=== PATIENT | female | born 1950 | race Caucasian/White ===

== ENCOUNTER → 2016-07-16 | Outpatient (CLI) | payer MEDICARE ==
[~2016-07-16] MED LIST: /LABE20TA; /WARF4TA OR; ASPI81TA83 OR; AVAP150T; AVAP150T OR; CARV25TA PO; COLA100C2; COUMADIN; CRES5TAB OR; K-TA10TA OR; LABE100T2; LASI20TA OR; PAIN325T; THERGRAN OR; XANA0.5T
--- NOTE | 2016-07-16 12:04 | REPMRS ---
Patient History The patient states she had a clinical breast exam in 2015. Patient is postmenopausal and has history of breast cancer at age 60. Family history of unknown cancer in father at age 62 and breast cancer in sister at age 63. Digital Mammo Screening Bilat: July 16, 2016 - Exam #: [id number] Bilateral CC and MLO view(s) were taken. Technologist: Shantell Carbajal, Technologist Prior study comparison: July 14, 2015, bilateral digital mammo screening bilat performed at [facility], [place]. July 13, 2014, bilateral digital mammo screening bilat performed at [facility], [place]. June 08, 2013, bilateral bilat screen digital mammo, performed at [facility], [place] ([facility]). FINDINGS: There are scattered fibroglandular densities. There has been no change in the appearance of the mammogram from the prior studies. There are stable post treatment changes in the left breast.There is a mild amount of scattered fibroglandular density which is fairly symmetric. There is no interval development of dominant mass, architectural distortion, or clustered microcalcification suggestive of malignancy. ASSESSMENT: BI-RADS/ACR category 1 mammogram. Negative. Recommendation Routine screening mammogram in 1 year (for women over age 40). This mammogram was interpreted with the aid of an FDA-approved computer-aided dectection system. Electronically Signed By: Vladimir Segura MD 07/16/16 0332
== END ==
LOC: M RAD 10:56
PROVIDERS: ATTEND Nurse Practitioner Family
DX: Z12.31 Encounter for screening mammogram for malignant neoplasm of breast (principal); Z78.0 Asymptomatic menopausal state

== ENCOUNTER → 2016-08-17 | Outpatient (REF) | payer MEDICARE | END | disposition home or self-care (01) | LOC: M LAB REF 12:43 | PROVIDERS: ATTEND Internal Medicine Medical Oncology | DX: C50.919 Malignant neoplasm of unspecified site of unspecified female breast (principal) ==

== ENCOUNTER → 2016-11-01 | Outpatient (REF) | payer MEDICARE ==
[2016-11-01 12:26] LABS: BASO % 0.2 % (0.0-1.0); EOS # 0.2 K/mm3 (0.0-0.50); LARGE UNSTAINED CELL # 0.1 K/mm3 (0.0-0.4); LARGE UNSTAINED CELL % 1.6 % (0.0-4.0); LYMPH # 2.1 K/mm3 (1.5-4.5); LYMPH % 27.6 % (24.0-44.0); MEAN CORPUSCULAR HEMOGLOBIN 33.8 pg (27.0-33.0); MEAN CORPUSCULAR HGB CONC 34.7 g/dl (32.0-36.5); MEAN CORPUSCULAR VOLUME 97.4 fl (80.0-96.0); MONO # 0.5 K/mm3 (0.0-0.8); NEUTROPHILS # 4.7 K/mm3 (1.8-7.7); NEUTROPHILS % 62.6 % (36.0-66.0); PLATELET COUNT, AUTOMATED 301 k/mm3 (150-450); RED CELL DISTRIBUTION WIDTH 13.5 % (11.5-14.5); WHITE BLOOD COUNT 7.6 K/mm3 (4.0-10.0)
[2016-11-01 12:30] LABS: ALBUMIN 3.6 GM/DL (3.2-5.2); ANION GAP 7 MEQ/L (8-16); BLOOD UREA NITROGEN 12 MG/DL (7-18); CARBON DIOXIDE LEVEL 30 MEQ/L (21-32); CHLORIDE LEVEL 103 MEQ/L (98-107); CREATININE FOR GFR 0.88 MG/DL (0.55-1.02); GLOMERULAR FILTRATION RATE > 60.0 (>45); GLUCOSE, FASTING 137 MG/DL (80-110); PHOSPHORUS LEVEL 3.5 MG/DL (2.5-4.9); SODIUM LEVEL 140 MEQ/L (136-145)
== END ==
LOC: M LABDRAW1 11:37
PROVIDERS: ATTEND Internal Medicine Nephrology
DX: N18.2 Chronic kidney disease, stage 2 (mild) (principal); D63.1 Anemia in chronic kidney disease; E55.9 Vitamin D deficiency, unspecified

== ENCOUNTER → 2016-12-19 | Outpatient (REF) | payer MEDICARE ==
[2016-12-19 16:10] LABS: ANION GAP 8 MEQ/L (8-16); BLOOD UREA NITROGEN 10 MG/DL (7-18); CALCIUM LEVEL 8.5 MG/DL (8.8-10.2); CARBON DIOXIDE LEVEL 28 MEQ/L (21-32); CHLORIDE LEVEL 103 MEQ/L (98-107); CREATININE FOR GFR 0.82 MG/DL (0.55-1.02); GLOMERULAR FILTRATION RATE > 60.0 (>45); GLUCOSE, FASTING 116 MG/DL (80-110); POTASSIUM SERUM 3.9 MEQ/L (3.5-5.1); SODIUM LEVEL 139 MEQ/L (136-145)
== END ==
LOC: M LABDRAW1 15:41
PROVIDERS: ATTEND Nurse Practitioner Family
DX: E11.9 Type 2 diabetes mellitus without complications (principal)

== ENCOUNTER → 2017-01-07 | Outpatient (CLI) | payer MEDICARE ==
[2017-01-07 12:54] LABS: INR 1.71
== END ==
LOC: M LAB 11:31
PROVIDERS: ATTEND Nurse Practitioner Family
DX: Z79.01 Long term (current) use of anticoagulants (principal)

== ENCOUNTER → 2017-01-09 | Outpatient (CLI) | payer MEDICARE ==
[2017-01-09 16:46] LABS: INR 1.69
== END ==
LOC: M LAB 16:01
PROVIDERS: ATTEND Family Medicine
DX: Z51.81 Encounter for therapeutic drug level monitoring (principal); Z79.01 Long term (current) use of anticoagulants

== ENCOUNTER → 2017-01-29 | Outpatient (CLI) | payer MEDICARE | LOC: M SMT 11:31 | PROVIDERS: ATTEND Nurse Practitioner Family | DX: E11.9 Type 2 diabetes mellitus without complications (principal) ==

== ENCOUNTER → 2017-03-26 | Outpatient (CLI) | payer MEDICARE ==
--- NOTE | 2017-03-26 14:37 | REP ---
PA and lateral chest: Comparison is 08/06/2013. The lung mcneal are clear. The cardiac size is normal The per, mediastinum, and bony thorax are unremarkable. Impression: Negative PA and lateral chest. There is no interval change. Signed by Kirill Levy MD 03/26/2017 02:28 P
== END ==
LOC: M SMT 13:42
PROVIDERS: ATTEND Nurse Practitioner Family
DX: J40 Bronchitis, not specified as acute or chronic (principal)

== ENCOUNTER → 2017-06-25 | Outpatient (REF) | payer MEDICARE ==
[2017-06-25 14:01] LABS: ALBUMIN 3.6 GM/DL (3.2-5.2); ALBUMIN/GLOBULIN RATIO 1.13 (1.00-1.93); ALKALINE PHOSPHATASE 81 U/L (45-117); ALT/SGPT 20 U/L (12-78); ANION GAP 6 MEQ/L (8-16); AST/SGOT 11 U/L (7-37); BILIRUBIN,TOTAL 0.4 MG/DL (0.2-1.0); BLOOD UREA NITROGEN 18 MG/DL (7-18); CALCIUM LEVEL 8.7 MG/DL (8.8-10.2); CARBON DIOXIDE LEVEL 30 MEQ/L (21-32); CHLORIDE LEVEL 105 MEQ/L (98-107); CHOLESTEROL LEVEL 82 MG/DL (<200); GLOMERULAR FILTRATION RATE > 60.0 (>45); GLUCOSE, FASTING 117 MG/DL (80-110); MAGNESIUM LEVEL 2.2 MG/DL (1.8-2.4); POTASSIUM SERUM 4.4 MEQ/L (3.5-5.1); SODIUM LEVEL 141 MEQ/L (136-145); TOTAL PROTEIN 6.8 GM/DL (6.4-8.2); TRIGLYCERIDES LEVEL 175 MG/DL (<150)
== END ==
LOC: M LABDRAW1 13:21
PROVIDERS: ATTEND Physician Assistant
DX: I48.0 Paroxysmal atrial fibrillation (principal); I11.9 Hypertensive heart disease without heart failure; E78.00 Pure hypercholesterolemia, unspecified; I47.1 Supraventricular tachycardia

== ENCOUNTER → 2017-07-19 | Outpatient (CLI) | payer MEDICARE | LOC: M RAD 10:20 | DX: Z12.31 Encounter for screening mammogram for malignant neoplasm of breast (principal); Z85.3 Personal history of malignant neoplasm of breast | CPT/HCPCS: 77067 ==

== ENCOUNTER → 2017-07-29 | Outpatient (CLI) | payer MEDICARE | LOC: M RAD 10:35 | DX: I65.29 Occlusion and stenosis of unspecified carotid artery (principal) | CPT/HCPCS: 93880 ==

== ENCOUNTER → 2017-08-09 | Outpatient (CLI) | payer MEDICARE ==
[~2017-08-09] MED LIST changes: -/LABE20TA; -/WARF4TA OR; -ASPI81TA83 OR; -AVAP150T; -AVAP150T OR; -CARV25TA PO; -COLA100C2; -COUMADIN; -CRES5TAB OR; +ISOVUE-370 76% 100ML VIAL (Q9967) As Ordered; -K-TA10TA OR; -LABE100T2; -LASI20TA OR; -PAIN325T; -THERGRAN OR; -XANA0.5T
== END ==
LOC: M RAD 10:16
DX: I65.23 Occlusion and stenosis of bilateral carotid arteries (principal)
CPT/HCPCS: Q9967

== ENCOUNTER → 2017-08-12 | Outpatient (CLI) | payer MEDICARE ==
[2017-08-12 10:45] LABS: CREATININE FOR GFR 0.84 MG/DL (0.55-1.30); GLOMERULAR FILTRATION RATE > 60.0 (>45)
[2017-08-12 10:45] LABS: BLOOD UREA NITROGEN 11 MG/DL (7-18)
== END ==
LOC: M LAB 09:36
DX: I65.23 Occlusion and stenosis of bilateral carotid arteries (principal)
CPT/HCPCS: 82565

== ENCOUNTER → 2017-10-01 | Outpatient (CLI) | payer MEDICARE | LOC: M RAD 08:12 | DX: R09.89 Other specified symptoms and signs involving the circulatory and respiratory systems (principal) | CPT/HCPCS: 76775 ==

== ENCOUNTER → 2018-03-24 | Outpatient (CLI) | payer MEDICARE ==
[2018-03-24 14:48] LABS: HEMATOCRIT 38.1 % (36.0-47.0); HEMOGLOBIN 12.6 g/dl (12.0-15.5); MEAN CORPUSCULAR HEMOGLOBIN 33.1 pg (27.0-33.0); MEAN CORPUSCULAR HGB CONC 33.1 g/dl (32.0-36.5); PLATELET COUNT, AUTOMATED 234 10^3/uL (150-450); RED BLOOD COUNT 3.81 10^6/uL (4.00-5.40); RED CELL DISTRIBUTION WIDTH 14.4 % (11.5-14.5); WHITE BLOOD COUNT 7.9 10^3/uL (4.0-10.0)
[2018-03-24 20:50] LABS: ALBUMIN 3.5 GM/DL (3.2-5.2); ANION GAP 9 MEQ/L (8-16); BLOOD UREA NITROGEN 15 MG/DL (7-18); CALCIUM LEVEL 8.7 MG/DL (8.8-10.2); CARBON DIOXIDE LEVEL 29 MEQ/L (21-32); CHLORIDE LEVEL 106 MEQ/L (98-107); CREATININE FOR GFR 0.85 MG/DL (0.55-1.30); GLOMERULAR FILTRATION RATE > 60.0 (>45); GLUCOSE, FASTING 193 MG/DL (70-100); POTASSIUM SERUM 4.3 MEQ/L (3.5-5.1); SODIUM LEVEL 144 MEQ/L (136-145)
== END ==
LOC: M SMT 10:09
DX: Z01.810 Encounter for preprocedural cardiovascular examination (principal); I48.0 Paroxysmal atrial fibrillation; I11.9 Hypertensive heart disease without heart failure
CPT/HCPCS: 80069

== ENCOUNTER → 2018-05-23 | Outpatient (CLI) | payer MEDICARE | LOC: M RAD 11:17 | DX: N26.1 Atrophy of kidney (terminal) (principal); N18.2 Chronic kidney disease, stage 2 (mild); N28.1 Cyst of kidney, acquired; R31.29 Other microscopic hematuria | CPT/HCPCS: 76775 ==

== ENCOUNTER → 2018-06-04 | Outpatient (CLI) | payer MEDICARE | LOC: M RAD 16:28 | DX: N28.81 Hypertrophy of kidney (principal); N26.1 Atrophy of kidney (terminal); N28.1 Cyst of kidney, acquired; I70.0 Atherosclerosis of aorta; Z87.448 Personal history of other diseases of urinary system; Z96.0 Presence of urogenital implants | CPT/HCPCS: Q9967 ==

== ENCOUNTER → 2018-08-26 | Outpatient (CLI) | payer MEDICARE ==
[~2018-08-26] MED LIST changes: +/LABE20TA; +/WARF4TA OR; +ASPI81TA83 OR; +AVAP150T; +AVAP150T OR; +CARV25TA PO; +COLA100C2; +COUMADIN; +CRES5TAB OR; -ISOVUE-370 76% 100ML VIAL (Q9967) As Ordered; +K-TA10TA OR; +LABE100T2; +LASI20TA OR; +PAIN325T; +THERGRAN OR; +XANA0.5T
--- NOTE | 2018-08-26 12:59 | REP ---
BILATERAL DIGITAL SCREENING MAMMOGRAM: 08/26/2018. Clinical history: Screening examination. She has no current complaint. She has a personal history of left breast cancer at age 60 with lumpectomy and radiation left breast. Comparison: 07/19/2017, 07/16/2016, 07/14/2015, 07/13/2014. Findings: Standard 2-D mammography with 3-D total symphysis images were provided. The left breast is smaller with postoperative and postradiation changes. Surgical bed in the upper outer quadrant left breast unchanged. There is some scattered fibroglandular elements in the breast parenchyma which may obscure a lesion. There are bilateral arterial calcifications in each breast and bilateral numerous coarse benign lucent centered calcifications superficially in the anterior breast, right more than left. These represent fat necrosis. Some scattered benign calcifications are seen in each breast. In the right breast noon position directly behind the nipple by about 6 cm is an 11 mm ill-defined nodular density developing which is not seen on remote priors. This finding persists on the 3-D total symphysis views. There are no dominant masses, other areas of architectural distortion, suspicious clusters of microcalcification or secondary signs of malignancy in the right breast. A few scattered benign axillary nodes are seen on the right. The skin thickening and post lumpectomy changes on the left are stable. Impression: 1. BIRADS 0: BI-RADS/ACR category 0 mammogram, Incomplete: Need additional imaging evaluation and/or prior mammograms for comparison. 10-11 mm nodule noon position retroareolar zone about 6 cm from the nipple in the right breast is a developing finding. Not seen on remote examinations. Recommend spot compression magnified right mammogram and dedicated right breast ultrasound to further evaluate. This mammogram was interpreted with the aid of an FDA-approved computer-aided detection system. The patient states she has not had a clinical breast exam in over a year. The patient letter being requested is M0. Electronically Signed by Herberth Fried MD 08/26/2018 05:51 P
== END ==
LOC: M RAD 10:36
PROVIDERS: ATTEND Nurse Practitioner Family
DX: Z12.31 Encounter for screening mammogram for malignant neoplasm of breast (principal)

== ENCOUNTER → 2018-09-02 | Outpatient (CLI) | payer MEDICARE ==
[~2018-09-02] MED LIST changes: +ALPR0.5T3 PO; +AMLO5TAB6 PO; +ASPI1TAB PO; +COUM1TAB14 PO; +COUM6TAB PO; +DIGO0.25 PO; +FURO20TA2 PO; +IRBE150T12 PO; +KLOR10TA76 PO; +MULTCAP PO; +ROSU20TA4 PO; +VITA-112 PO
--- NOTE | 2018-09-02 18:51 | REP ---
Digital diagnostic unilateral right breast mammography with CAD and focused right breast sonography: History: Screening mammography from August 26, 2018 was BIRADS category zero incomplete because of a possible developing density centrally in the right breast. History of left breast carcinoma. Comparison right breast mammograms are also reviewed from July 19, 2017 and the July 16, 2016. Mammographic findings: The previously noted central right breast density persists 1.1 cm in diameter. It has somewhat ill-defined margins and is best seen on the craniocaudad projection. No other suspicious mammographic findings: Numerous macrocalcifications are again noted on the right. Sonographic findings: The right breast is scanned in the retroareolar central zone. Multiple shadowing microcalcifications are seen. A few mildly dilated ducts are noted. At 6 o'clock, there is a 10 x 4 x 9 mm oval-shaped cyst with well defined back wall and enhanced through transmission. This is felt to correspond with the mammographic opacity. Impression: BIRADS category II benign findings. 10 mm cyst seen by ultrasound corresponding to the mammographic opacity. This mammogram was interpreted with the aid of an FDA-approved computer-aided detection system. The patient states that she has not had a clinical breast exam in over a year. The patient letter being requested is m1 . Electronically Signed by Mau Segura MD 09/02/2018 07:34 P
== END ==
LOC: M RAD 13:19
PROVIDERS: ATTEND Nurse Practitioner Family
DX: R92.8 Other abnormal and inconclusive findings on diagnostic imaging of breast (principal); R92.0 Mammographic microcalcification found on diagnostic imaging of breast; Z85.3 Personal history of malignant neoplasm of breast

== ENCOUNTER → 2018-10-01 | Outpatient (CLI) | payer MEDICARE ==
--- NOTE | 2018-10-01 15:15 | REP ---
Clinical: Lung screening. History of nicotine dependence Comparison: 06/07/2009 Technique: Axial low-dose noncontrast images from the thoracic inlet to the upper abdomen using lung screening technique. Findings: The lung mcneal are well-aerated. Few scattered calcified nodules are identified along with noncalcified nodules measuring up to 6 mm in the left lower lobe (image 73) which remain stable when compared with 2009. No consolidation, significant nodule or mass lesion is appreciated. No pleural effusion/reaction or pneumothorax. Tracheobronchial tree is patent. Mediastinum demonstrates mild atherosclerotic changes of the coronary arteries without cardiomegaly. Impression: Lung-RADS category I. No significant new nodule or suspicious abnormality. Stable small calcified densities and noncalcified nodules up to 6 mm unchanged compared to 2009. Management recommendations include annual low-dose CT evaluation. Electronically Signed by Jose Miller MD 10/01/2018 03:05 P
== END ==
LOC: M RAD 10:54
PROVIDERS: ATTEND Internal Medicine Medical Oncology
DX: Z12.2 Encounter for screening for malignant neoplasm of respiratory organs (principal); Z87.891 Personal history of nicotine dependence; Z85.3 Personal history of malignant neoplasm of breast; R91.8 Other nonspecific abnormal finding of lung field

== ENCOUNTER 2018-12-07 10:29 | Emergency (ER) | payer MEDICARE ==
[~2018-12-07] VITALS: Ht 177.8 cm; Wt 67.3 kg
[~2018-12-07 10:29] MED LIST changes: -/LABE20TA; -/WARF4TA OR; -ASPI1TAB PO; +ASPI81TA26 PO; +COUM1TAB14 OR; +LABE1TAB11
[2018-12-07] MEDS ORDERED: CARV12.5 (10:38)
[2018-12-07] MEDS ORDERED: IRBE75TA5 (10:38)
[2018-12-07 11:11] LABS: BASO # 0.1 10^3/uL (0.0-0.2); BASO % 0.8 % (0.0-1.0); EOS # 0.1 10^3/uL (0.0-0.50); EOS % 1.3 % (0.0-3.0); HEMATOCRIT 35.1 % (36.0-47.0); HEMOGLOBIN 11.8 g/dl (12.0-15.5); LYMPH # 1.6 10^3/uL (1.5-4.5); LYMPH % 20.8 % (24.0-44.0); MEAN CORPUSCULAR HEMOGLOBIN 34.2 pg (27.0-33.0); MEAN CORPUSCULAR HGB CONC 33.6 g/dl (32.0-36.5); MEAN CORPUSCULAR VOLUME 101.7 fl (80.0-96.0); MONO # 0.6 10^3/uL (0.0-0.8); MONO % 7.7 % (0.0-5.0); NEUTROPHILS # 5.2 10^3/uL (1.8-7.7); NEUTROPHILS % 69.1 % (36.0-66.0); PLATELET COUNT, AUTOMATED 222 10^3/uL (150-450); RED BLOOD COUNT 3.45 10^6/uL (4.00-5.40); WHITE BLOOD COUNT 7.5 10^3/uL (4.0-10.0)
--- NOTE | 2018-12-07 11:15 | REP ---
Clinical: Chest pain . Comparison: 03/26/2017 . Findings: The mediastinum and cardiac silhouette are stable and within normal limits for portable technique. The lung mcneal demonstrate diffuse chronic interstitial changes without acute consolidation, effusion, or pneumothorax. Skeletal structures are intact. Evidence of prior left axillary node dissection. A small rim calcified granulomas overlie the left lung base possibly within the left breast. Impression: No acute cardiopulmonary process appreciated. Electronically Signed by Jose Miller MD 12/07/2018 11:06 A
--- NOTE | 2018-12-07 11:18 | REP ---
Clinical: Possible acute infarction. Comparison: 06/05/2013 . Findings: Age-related atrophy with periventricular leukomalacia and microvascular ischemic changes are appreciated. Evidence for old right frontal lobe infarction with encephalomalacia. The ventricles and sulci are symmetric. Mari-white differentiation is maintained. There is no evidence for acute intracranial hemorrhage, mass/mass effect, pathology or infarction. No extra-axial fluid collection. Calvarium is intact. Paranasal sinuses and mastoid air cells are clear. Impression: Age related atrophy and microvascular ischemic changes along with a old right frontal lobe infarction. No acute intracranial hemorrhage, infarction, or mass/mass effect. Electronically Signed by Jose Miller MD 12/07/2018 11:10 A
[2018-12-07 11:21] LABS: INR 2.86; PROTHROMBIN TIME 30.6 SECONDS (12.1-14.4)
[2018-12-07 11:22] LABS: PARTIAL THROMBOPLASTIN TIME 40.7 SECONDS (25.4-37.6)
[2018-12-07 11:51] LABS: ALBUMIN 3.6 GM/DL (3.2-5.2); ALT/SGPT 25 U/L (12-78); BILIRUBIN,DIRECT 0.1 MG/DL (0.0-0.2); BILIRUBIN,TOTAL 0.4 MG/DL (0.2-1.0); BLOOD UREA NITROGEN 14 MG/DL (7-18); CALCIUM LEVEL 8.3 MG/DL (8.8-10.2); CARBON DIOXIDE LEVEL 30 MEQ/L (21-32); CHLORIDE LEVEL 106 MEQ/L (98-107); CPK CREATINE PHOSPHOKINASE 108 U/L (26-192); CREATININE FOR GFR 0.91 MG/DL (0.55-1.30); FREE T4 1.04 NG/DL (0.76-1.46); GLOMERULAR FILTRATION RATE > 60.0 (>45); GLUCOSE, FASTING 190 MG/DL (70-100); LIPASE 165 U/L (73-393); MB/CK RELATIVE INDEX 1.39 (< OR =4); POTASSIUM SERUM 4.2 MEQ/L (3.5-5.1); SODIUM LEVEL 142 MEQ/L (136-145); THYROID STIMULATING HORMONE 0.693 uIU/ML (0.358-3.740); TROPONIN I < 0.02 NG/ML (< 0.10)
--- NOTE | 2018-12-07 12:26 | REP ---
CLINICAL: Rule out acute cerebral infarction TECHNIQUE: Axial noncontrast T1, T2 FLAIR, and hemorrhage sequences, along with sagittal T1 sequence and diffusion ADC mapping. COMPARISON: 06/05/2013 FINDINGS: Chronic microvascular ischemic changes are appreciated with small lacunar infarct in the right frontoparietal lobe. Ventricles, sulci, and cisterns are otherwise symmetric. Mari-white differentiation is relatively well maintained. There is no evidence for acute intracranial hemorrhage, mass/mass effect, or obvious signal abnormality to suggest acute pathology. Midline and midbrain structures are intact. No extra-axial fluid collection identified. Bilateral orbits symmetric. Sinuses clear. Diffusion sequence without evidence for acute infarction. IMPRESSION: Chronic microvascular ischemic changes with small, scattered lacunar infarcts in the basal ganglia and right frontoparietal lobe consistent with old MCA infarction and essentially stable. No evidence for acute intracranial hemorrhage, infarction, or mass. Electronically Signed by Jose Miller MD 12/07/2018 12:18 P
--- NOTE | 2018-12-07 12:39 | REP ---
CLINICAL: Rule out cerebral infarction. TECHNIQUE: Axial noncontrast 3-D [id number] source images with multiplanar MIP reformations. COMPARISON: 06/05/2013. FINDINGS: There are suggestions for atherosclerotic disease involving the internal carotid arteries without significant stenosis. There is symmetric appearance to the intracranial vasculature and [place], which appears relatively normal. The visualized portions of the vertebrobasilar system appear intact. There is no evidence for arteriovenous malformation, aneurysm, or significant loss of vascular signal to suggest areas of decreased vascular supply. IMPRESSION: Moderate atherosclerotic changes. No evidence for aneurysm, AVM, or significant further pathology. Intracranial vasculature appears relatively symmetric. Electronically Signed by Jose Miller MD 12/07/2018 12:30 P
[2018-12-07] MEDS ORDERED: MECLIZINE 25 MG TABLET PO ONE (14:00)
[2018-12-07] MEDS ORDERED: MECL-68 PO (14:29)
[2018-12-07 14:33] VITALS: BP 101/58
--- NOTE | 2018-12-07 19:34 | ECGEPIP ---
[facility] - ED Test Date: 2018-12-07 Pat Name: DOROTEO STONER Department: Room: - Gender: Female Burrito Maker: ALISIA : 1950 Requested By: Eugenia Tobin Order Number: [id number] Reading MD: Eugenia Tobin Measurements Intervals [place] Rate: 74 P: OR: -1 QRS: QRSD: 144 T: QT: 368 QTc: 410 Interpretive Statements ATRIAL FIBRILLATION RBBB MARKED LEFT AXIS DEVIATION LAFB INTRAVENTRICULAR CONDUCTION DELAY MODERATE VOLTAGE CRITERIA FOR LVH CW 01/12/16 RATE DECREASED Electronically Signed on 12-07-2018 19:34:01 EDT by Eugenia Tobin
== END 2018-12-07 14:35 | disposition home or self-care (01) ==
LOC: M ED 10:29
DX: R42 Dizziness and giddiness (principal); I48.91 Unspecified atrial fibrillation; I45.10 Unspecified right bundle-branch block; I10 Essential (primary) hypertension; E78.9 Disorder of lipoprotein metabolism, unspecified; Z79.899 Other long term (current) drug therapy; Z79.82 Long term (current) use of aspirin; Z79.01 Long term (current) use of anticoagulants; Z88.1 Allergy status to other antibiotic agents; Z88.2 Allergy status to sulfonamides; Z88.5 Allergy status to narcotic agent; F17.210 Nicotine dependence, cigarettes, uncomplicated

== ENCOUNTER → 2018-12-31 | Outpatient (REF) | payer MEDICARE ==
[~2018-12-31] MED LIST changes: +CARV12.5; +IRBE75TA5; +MECL-68 PO
== END ==
LOC: M LAB REF 13:15
PROVIDERS: ATTEND Physician Assistant
DX: N39.0 Urinary tract infection, site not specified (principal)

== ENCOUNTER 2019-01-15 20:31 | Inpatient (IN) | payer MEDICARE ==
[~2019-01-15] VITALS: Ht 177.8 cm; Wt 67.4 kg
[~2019-01-15 20:31] MED LIST changes: -DIGO0.25 PO; +DIGO0.253 PO; +MACR100C43 PO; -MECL-68 PO; +MECL1TAB31 PO; -ROSU20TA4 PO; +ROSU20TA5 PO
[2019-01-15] MEDS ORDERED: NS 1,000 ML IV ONE (21:30)
--- NOTE | 2019-01-15 21:39 | REPVR ---
EXAM: CT Head Without Contrast EXAM DATE/TIME: 01/15/2019 9:30 PM CLINICAL HISTORY: 68 years old, female; Numbness / parasthesia; Left; Additional info: CVA - nursing interventions must not delay CT TECHNIQUE: Imaging protocol: Axial computed tomography images of the head without contrast. Radiation optimization: All CT scans at this facility use at least one of these dose optimization techniques: automated exposure control; mA and/or kV adjustment per patient size (includes targeted exams where dose is matched to clinical indication); or iterative reconstruction. Other technique: STROKE PROTOCOL was implemented. COMPARISON: CT Head without contrast 12/07/2018 10:53 AM FINDINGS: Brain: There is white matter lucency indicating chronic microvascular disease. There are right frontal old cortical infarct. No acute infarct is identified. There is no hemorrhage or extra-axial collection. There is no mass. Ventricles: Normal. No ventriculomegaly. Bones/joints: Unremarkable. No acute fracture. Sinuses: Visualized sinuses are unremarkable. No fluid levels. Mastoid air cells: Visualized mastoid air cells are well aerated. No mastoid effusion. Soft tissues: Unremarkable. Vasculature: There are carotid artery calcifications. IMPRESSION: Old right frontal cortical infarct. No acute lesion or injury and no change from prior scan. ASSESSMENT: ASPECTS (Jen Stroke Program Early CT Score) is 10 Electronically signed by: Ta Madison On 01/15/2019 21:39:14 PM
[2019-01-15 21:58] LABS: BASO % 0.1 % (0.0-1.0); EOS # 0.1 10^3/uL (0.0-0.50); EOS % 0.8 % (0.0-3.0); HEMATOCRIT 27.3 % (36.0-47.0); HEMOGLOBIN 8.7 g/dl (12.0-15.5); LYMPH # 2.6 10^3/uL (1.5-4.5); MEAN CORPUSCULAR HEMOGLOBIN 31.3 pg (27.0-33.0); MEAN CORPUSCULAR HGB CONC 31.9 g/dl (32.0-36.5); MEAN CORPUSCULAR VOLUME 98.2 fl (80.0-96.0); MONO # 0.9 10^3/uL (0.0-0.8); MONO % 7.9 % (0.0-5.0); NEUTROPHILS # 7.6 10^3/uL (1.8-7.7); NEUTROPHILS % 67.8 % (36.0-66.0); PLATELET COUNT, AUTOMATED 327 10^3/uL (150-450); RED BLOOD COUNT 2.78 10^6/uL (4.00-5.40); WHITE BLOOD COUNT 11.2 10^3/uL (4.0-10.0)
[2019-01-15 22:22] LABS: INR 3.54; PARTIAL THROMBOPLASTIN TIME 35.5 SECONDS (25.0-38.4); PROTHROMBIN TIME 35.5 SECONDS (11.8-14.0)
[2019-01-15 22:44] LABS: BLOOD UREA NITROGEN 20 MG/DL (7-18); CALCIUM LEVEL 8.2 MG/DL (8.8-10.2); CARBON DIOXIDE LEVEL 30 MEQ/L (21-32); CHLORIDE LEVEL 99 MEQ/L (98-107); CK-MB VALUE MASS < 1.0 NG/ML (<3.6); CPK CREATINE PHOSPHOKINASE 41 U/L (26-192); CREATININE FOR GFR 1.13 MG/DL (0.55-1.30); GLOMERULAR FILTRATION RATE 51.1 (>45); GLUCOSE, FASTING 314 MG/DL (70-100); MB/CK RELATIVE INDEX 2.44 (< OR =4); NT-PRO BNP 730 PG/ML (<125); POTASSIUM SERUM 4.7 MEQ/L (3.5-5.1); SODIUM LEVEL 136 MEQ/L (136-145); TROPONIN I < 0.02 NG/ML (< 0.10)
[2019-01-16] MEDS ORDERED: ALPR0.5T3 PO (00:12)
[2019-01-16] MEDS ORDERED: ASPI-161 PO (00:12)
[2019-01-16] MEDS ORDERED: COUM1TAB14 PO (00:12)
[2019-01-16] MEDS ORDERED: ROSU20TA5 PO (00:12)
[2019-01-16] MEDS ORDERED: DOCU100C16 PO (00:12)
[2019-01-16] MEDS ORDERED: MACR100C43 PO (00:12)
[2019-01-16] MEDS ORDERED: VITMTA PO (00:12)
[2019-01-16] MEDS ORDERED: CARV12.5 PO (00:12)
[2019-01-16] MEDS ORDERED: WARF-20 PO (00:12)
[2019-01-16] MEDS ORDERED: PROAAER10 INH (00:12)
[2019-01-16] MEDS ORDERED: IRBE75TA5 PO (00:12)
[2019-01-16] MEDS ORDERED: IPRATROPIUM 0.5MG/ALBUTEROL 2.5MG INH SOL UD 3ML (DUONEB)(J7620) NEB PRN (00:45)
[2019-01-16] MEDS ORDERED: DOCUSATE SODIUM 100 MG CAP PO PRN (00:45)
[2019-01-16] MEDS ORDERED: GLUCOSE 4 GM CHEW TABLET PO PRN (00:45)
[2019-01-16] MEDS ORDERED: GLUCAGON FOR INJ 1 MG VIAL (J1610) SC PRN (00:45)
[2019-01-16] MEDS ORDERED: DEXTROSE 50% 50 ML SYRINGE IV PRN (00:45)
--- NOTE | 2019-01-16 01:16 | HPEPDOC ---
General Date of Admission 01.16.19 Date of Service: Jan 16, 2019 Chief Complaint The patient is a 68-year-old female admitted with a reason for visit of Face Pain. History of Present Illness 68f hx of cva, afib on coumadin, diet controlled dm, breast cancer, htn, who presents with tingling in her left arm and face. She believes this lasted about 30 minutes today. She also reports feeling ill for the past month. the has been coughing with thick sputum. It has improved now but she still feels malaised. She has been on antibiotics, steroids, and now albuterol. She was here in the ER last night and noted to be anemic and hyperglycemic. Her steroids were stopped. A full ROS was performed and negative except as documented above Home Medications Scheduled Alprazolam (Alprazolam) 0.5 Mg Tablet, 0.25 MG PO QHS, (Reported) Aspirin (Aspirin EC) 81 Mg Tablet.dr, 81 MG PO DAILY, (Reported) Carvedilol (Carvedilol) 12.5 Mg Tablet, 12.5 MG PO QID, (Reported) HOLD IF SBP<140 Cholecalciferol (Vitamin D3) (Vitamin D3) 1,000 Unit Tab, 1,000 UNIT PO QHS, (Reported) Digoxin (Digoxin) 250 Mcg Tab, 125 MCG PO BID, (Reported) Furosemide (Furosemide) 20 Mg Tab, 20 MG PO DAILY, (Reported) Irbesartan (Irbesartan) 75 Mg Tablet, 75 MG PO TID, (Reported) HOLD IF SBP<140 Multivitamins (Thera M Plus Tablet) 1 Each Tablet, 1 TAB PO QHS, (Reported) Nitrofurantoin Monohyd/M-Cryst (Macrobid 100 mg Capsule) 100 Mg Capsule, 100 MG PO BID, (Reported) Potassium Chloride (Klor-Con M10) 10 Meq Tabcr, 10 MEQ PO DAILY, (Reported) TAKES AT 1400 Rosuvastatin Calcium (Rosuvastatin Calcium) 20 Mg Tablet, 20 MG PO QHS, (Reported) Warfarin Sodium (Coumadin) 4 Mg Tablet, 8 MG PO 3XW, (Reported) SATURDAY, SATURDAY AND SATURDAY AT 1400 Warfarin Sodium (Warfarin Sodium) 4 Mg Tablet, 6 MG PO 4XWK, (Reported) SATURDAY, SATURDAY, SATURDAY, SATURDAY AT 1400 Scheduled PRN Albuterol Sulfate (Proair Hfa) 8.5 Gm Hfa.aer.ad, 2 PUFF INH Q4H PRN for SHORTNESS OF BREATH, (Reported) Docusate Sodium (Docusate Sodium) 100 Mg Capsule, 100 MG PO BID PRN for CONSTIPATION, (Reported) Allergies Coded Allergies: Sulfa (Sulfonamide Antibiotics) (Verified Allergy, Unknown, 01/14/19) codeine (Verified Adverse Reaction, Intermediate, N+V, 01/14/19) Past Medical History Medical History as above Surgical History as above A-FIB/CHADSVASC A-FIB History Current/History of A-Fib/PAF?: Yes Current PO Anticoag Therapy: Yes Physical Examination General Exam: Positive: Alert, No Acute Distress Eye Exam: Positive: PERRLA, Conjunctiva & lids normal, EOMI; Negative: Sclera icteric ENT Exam: Positive: Atraumatic, Mucous membr. moist/pink, Pharynx Normal Neck Exam: Positive: Supple; Negative: JVD, thyromegaly Chest Exam: Positive: Clear to auscultation, Normal air movement Heart Exam: Negative: Rate Normal, Tachycardic, Bradycardic, Regular Rhythm, Irregular Rhythm, Normal S1, Normal S2, Gallops, Murmurs, Rubs, Other Abdomen Exam: Positive: Normal bowel sounds, Soft; Negative: Tenderness, Hepatospenomegaly Extremity Exam: Positive: Normal pulses; Negative: Clubbing, Cyanosis, Edema Skin Exam: Positive: Nl turgor and temperature; Negative: Breakdown, Lesion Neuro Exam: Positive: Normal Gait, Normal Speech, Cranial Nerves 3-12 NL, Reflexes 2+ Psych Exam: Positive: Mental status NL, Mood NL, Oriented x 3 Vital Signs Vital Signs Date Time Temp Pulse Resp B/P (MAP) Pulse Ox O2 Delivery O2 Flow Rate FiO2 01/16/19 00:44 82 20 140/65 (90) 96 Room Air 01/15/19 20:32 98.2 Laboratory Data Labs 24H Laboratory Tests 2 01/15/19 21:31: Immature Granulocyte % (Auto) 0.4, White Blood Count 11.2H, Red Blood Count 2.78L, Hemoglobin 8.7L, Hematocrit 27.3L, Mean Corpuscular Volume 98.2H, Mean Corpuscular Hemoglobin 31.3, Mean Corpuscular Hemoglobin Concent 31.9L, Red Cell Distribution Width 13.2, Platelet Count 327, Neutrophils (%) (Auto) 67.8H, Lymphocytes (%) (Auto) 23.0L, Monocytes (%) (Auto) 7.9H, Eosinophils (%) (Auto) 0.8, Basophils (%) (Auto) 0.1, Neutrophils # (Auto) 7.6, Lymphocytes # (Auto) 2.6, Monocytes # (Auto) 0.9H, Eosinophils # (Auto) 0.1, Basophils # (Auto) 0.0, Nucleated Red Blood Cells % (auto) 0.0, Prothrombin Time 35.5H, Prothromb Time International Ratio 3.54, Activated Partial Thromboplast Time 35.5, Anion Gap 7L, Glomerular Filtration Rate 51.1, Blood Urea Nitrogen 20H, Creatinine 1.13, Sodium Level 136, Potassium Level 4.7, Chloride Level 99, Carbon Dioxide Level 30, Calcium Level 8.2L, Total Creatine Kinase 41, Creatine Kinase MB < 1.0, Creatine Kinase MB Relative Index 2.44, Troponin I < 0.02, [id number]-Type Natriuretic Peptide 730H, Digoxin Level 1.0 01/15/19 21:51: Bedside Glucose (Misc Panel) 351H CBC/BMP Laboratory Tests 01/15/19 21:31 Red Blood Count 2.78 L, Mean Corpuscular Volume 98.2 H, Mean Corpuscular Hemoglobin 31.3, Mean Corpuscular Hemoglobin Concent 31.9 L, Red Cell Distribution Width 13.2, Neutrophils (%) (Auto) 67.8 H, Lymphocytes (%) (Auto) 23.0 L, Monocytes (%) (Auto) 7.9 H, Eosinophils (%) (Auto) 0.8, Basophils (%) (Auto) 0.1, Neutrophils # (Auto) 7.6, Lymphocytes # (Auto) 2.6, Monocytes # (Auto) 0.9 H, Eosinophils # (Auto) 0.1, Basophils # (Auto) 0.0, Calcium Level 8.2 L, Total Creatine Kinase 41 Assessment/Plan 68f presenting with possible TIA TIA reports had left CEA recently and carotid duplex two months ago which was wnl symptoms have completely resolved ABCD2 score=4 neurology consult in am sees Dr Bains check lipids continue asa DM worsened by steroid use sliding scale finger sticks add basal bolus as needed check a1c cough likely copd duonebs prn will start advair afib contineu coumadin when inr comes down a little continue coreg, dig and irbasartan reported home frequencies of the above medications are very unusual will check dig level need to verify Plan / VTE VTE Prophylaxis Ordered?: Yes CARRI DIXON MD Jan 16, 2019 01:16
[2019-01-16] MEDS ORDERED: PILL CUTTER 1 EACH XX PRN (06:00)
[2019-01-16 07:13] LABS: HEMOGLOBIN 7.8 g/dl (12.0-15.5); MEAN CORPUSCULAR HEMOGLOBIN 31.6 pg (27.0-33.0); MEAN CORPUSCULAR HGB CONC 31.2 g/dl (32.0-36.5); MEAN CORPUSCULAR VOLUME 101.2 fl (80.0-96.0); PLATELET COUNT, AUTOMATED 284 10^3/uL (150-450); RED BLOOD COUNT 2.47 10^6/uL (4.00-5.40); WHITE BLOOD COUNT 10.2 10^3/uL (4.0-10.0)
[2019-01-16 07:18] LABS: INR 3.61
[2019-01-16 07:25] LABS: HEMOGLOBIN A1c 8.6 %
[2019-01-16 07:56] LABS: BLOOD UREA NITROGEN 20 MG/DL (7-18); CALCIUM LEVEL 8.3 MG/DL (8.8-10.2); CARBON DIOXIDE LEVEL 31 MEQ/L (21-32); CHLORIDE LEVEL 103 MEQ/L (98-107); CREATININE FOR GFR 0.88 MG/DL (0.55-1.30); GLOMERULAR FILTRATION RATE > 60.0 (>45); GLUCOSE, FASTING 239 MG/DL (70-100); POTASSIUM SERUM 4.5 MEQ/L (3.5-5.1); SODIUM LEVEL 138 MEQ/L (136-145)
[2019-01-16] MEDS: SYMBICORT 80/4.5MCG INHALER 6GM INH SCH ×2 (08:17→20:44)
--- NOTE | 2019-01-16 08:43 | REP ---
CHEST, SINGLE VIEW: Single view of the chest is performed and compared to a prior study of 12/07/2018. There is no acute infiltrate. Heart is normal in size. There is calcification of the thoracic aorta. Mediastinal silhouette is unchanged. Multiple metallic clips are again seen in the left axillary region. IMPRESSION: No acute pulmonary disease. Electronically Signed by Kirill Mari MD 01/17/2019 10:35 A
[2019-01-16] MEDS ORDERED: CARVedilol 12.5 MG TAB PO SCH (09:00)
[2019-01-16] MEDS ORDERED: DIGOXIN 0.125 MG TAB PO SCH (09:00)
[2019-01-16] MEDS: IRBESARTAN 150 MG TAB PO SCH ×3 (09:00→20:41)
[2019-01-16] MEDS ORDERED: IRBESARTAN 150 MG TAB PO SCH (09:00)
[2019-01-16] MEDS ORDERED: DIGOXIN 0.25 MG TAB PO SCH (09:00)
[2019-01-16] MEDS: NITROFURANTOIN (MACROBID) 100 MG CAP PO SCH ×2 (09:18→20:40)
[2019-01-16] MEDS: ASPIRIN 81 MG ENTERIC TAB PO SCH (09:19)
[2019-01-16] MEDS: FUROSEMIDE 20 MG TAB PO SCH (09:19)
[2019-01-16] MEDS: DIGOXIN 0.25 MG TAB PO SCH (09:19)
[2019-01-16] MEDS: CARVedilol 12.5 MG TAB PO SCH ×3 (09:19→20:40)
[2019-01-16] MEDS: HumaLOG INSULIN (NovoLOG) PER UNIT SC SCH ×3 (09:20→17:33)
[2019-01-16 14:33] VITALS: BP 127/56
[2019-01-16 16:00] VITALS: BP 136/61
[2019-01-16] MEDS ORDERED: metFORMIN (GLUCOPHAGE) 500 MG TAB PO ONE (18:30)
[2019-01-16] MEDS ORDERED: MAG SULF 1GM/100ML (MAG RUN) 1 GM in IV 1 EA IV ONE (18:45)
[2019-01-16] MEDS ORDERED: CALCIUM GLUCONATE 1,000 MG in D5W MINI-BAG PLUS 100 ML IV ONE (18:45)
[2019-01-16 19:21] LABS: CK-MB VALUE MASS < 1.0 NG/ML (<3.6); CPK CREATINE PHOSPHOKINASE 28 U/L (26-192); FERRITIN 8 NG/ML (8-252); IRON (FE) 36 UG/DL (50-170); MB/CK RELATIVE INDEX 3.57 (< OR =4); PERCENT SATURATION 10.7 % (13.2-45.0); TOTAL IRON BINDING CAPACITY 335 UG/DL (250-450); TROPONIN I 0.02 NG/ML (< 0.10)
[2019-01-16 19:43] LABS: IONIZED CALCIUM 4.5 MG/DL (4.5-5.3)
[2019-01-16 19:56] LABS: HEMATOCRIT 25.3 % (36.0-47.0)
[2019-01-16 20:00] VITALS: BP 128/57
[2019-01-16 20:08] LABS: INR 2.86; PROTHROMBIN TIME 29.9 SECONDS (11.8-14.0)
[2019-01-16 20:09] LABS: PARTIAL THROMBOPLASTIN TIME 34.3 SECONDS (25.0-38.4)
[2019-01-16 20:12] LABS: MAGNESIUM LEVEL 2.1 MG/DL (1.8-2.4)
--- NOTE | 2019-01-16 20:19 | ECGEPIP ---
[facility] - ED Test Date: 2019-01-15 Pat Name: DOROTEO STONER Department: Room: [place] [address] Gender: Female Machine Wood Sander: fabiola : 1950 Requested By: BARRINGTON Hoffman Order Number: [id number] Reading MD: Eugenia Tobin Measurements Intervals [place] Rate: 86 P: 66 [place]: 167 QRS: QRSD: 141 T: 32 QT: 351 QTc: 420 Interpretive Statements SINUS RHYTHM WITH SINUS ARRHYTHMIA LAD LAFB RIGHT BUNDLE BRANCH BLOCK MINIMAL VOLTAGE CRITERIA FOR LVH, CONSIDER NORMAL VARIANT SEPTAL MYOCARDIAL INFARCTION, PROBABLY OLD CW 12/07/18 RATE INCREASED RHYHTM NOW SINUS NONSPECIFIC ST T WAVE CHANGES Electronically Signed on 01-16-2019 20:19:28 EDT by Eugenia Tobin
[2019-01-16] MEDS ORDERED: ALPRAZolam 0.25 MG TAB PO SCH (21:00)
[2019-01-16] MEDS ORDERED: VITAMIN D 1,000 INTERNATIONAL UNITS TABLET PO SCH (21:00)
[2019-01-16] MEDS ORDERED: MULTIVITAMINS/MINERALS THERAP 1 TAB PO SCH (21:00)
[2019-01-16] MEDS ORDERED: ROSUVASTATIN 10 MG TAB (CRESTOR) PO SCH (21:00)
[2019-01-16 23:59] VITALS: BP 131/56
[2019-01-17 00:19] LABS: HEMATOCRIT 25.2 % (36.0-47.0); HEMOGLOBIN 7.9 g/dl (12.0-15.5)
--- NOTE | 2019-01-17 00:28 | CR ---
DATE OF CONSULTATION: 01/16/2019 REFERRING PHYSICIAN: Dr. Misbah Avalos HISTORY OF PRESENT ILLNESS: Tarah Jain is a 68-year-old woman with a history of stroke, atrial fibrillation - on Coumadin, diet-controlled diabetes, breast cancer, hypertension who states that she came to [facility] as she felt sick. She had pneumonia a month ago and was taking prednisone, which caused blood sugar to go up to 422. She was also found to have low hemoglobin and hematocrit. The patient states that since 2006, she had episodes of left-sided facial pain off and on, which occurs twice a year. It can last for 30 minutes. She denies any numbness of her face, arms and legs or weakness with her left-sided facial pain. She denies any headaches, neck pain, back pain, seizures, dysphagia, dysarthria, diplopia or urinary incontinence. PAST MEDICAL HISTORY: Atrial fibrillation, hypertension, stroke, dyslipidemia, breast cancer, diet-controlled diabetes. HOME MEDICATIONS: - Xanax 0.5 mg, half a tablet by mouth nightly - aspirin 81 mg by mouth daily - carvedilol 4.5 mg by mouth four times a day - digoxin 125 mcg by mouth twice a day - Lasix 20 mg by mouth daily - irbesartan 75 mg by mouth three times a day - Crestor 20 mg by mouth daily - Coumadin 8 mg alternating with 6 mg by mouth daily SOCIAL HISTORY: She denies smoking, alcohol or illicit drugs. FAMILY HISTORY: Noncontributory. ALLERGIES: SULFA, CODEINE. REVIEW OF SYSTEMS: All systems were reviewed and found to be noncontributory except as mentioned in the history of the present illness. PHYSICAL EXAMINATION: Temperature 98.2, pulse 82, respiratory rate 20, blood pressure 140/65. Heart: Irregularly irregular. Lungs: Clear to auscultation. Abdomen: Soft, nontender, nondistended. No pedal edema. No musculoskeletal abnormalities. No rash. No signs of meningeal irritation. The patient is awake, alert, oriented to place, person and time. Normal speech, comprehension and repetition. Extraocular muscles are intact. No facial weakness. Tongue and uvula are midline. 5/5 strength in all four extremities. Deep tendon reflexes are 1+ throughout. Normal sensation throughout. Gait could not be tested. DIAGNOSTIC STUDIES: Her CBC showed WBC of 11.2 with hemoglobin 8.7 and platelet count 327. Her BMP showed blood glucose 314. ASSESSMENT: 1. Episodic left-sided facial pain, which can be atypical facial pain. 2. Trigeminal neuralgia or transient ischemic attack (TIA) are less likely. 3. Atrial fibrillation. 4. Pneumonia, bronchitis and anemia. PLAN: 1. MRI scan of brain and carotid ultrasound. 2. Continue aspirin and Coumadin. 3. Continue Crestor 20 mg by mouth daily and appropriate management of her hypertension. 4. She likely will need GI workup for bleeding and anemia. She is taking aspirin and Coumadin. 5. Followup with Blank at our office in 1 month after hospital discharge.
[2019-01-17 04:00] VITALS: BP 110/52
[2019-01-17 06:08] LABS: HEMATOCRIT 24.7 % (36.0-47.0); HEMOGLOBIN 7.9 g/dl (12.0-15.5)
--- NOTE | 2019-01-17 06:36 | IPNPDOC ---
Date Seen The patient was seen on 01/16/19. Progress Note SUBJECTIVE: DENIES facial numbness, paresthesias, UE or LE weakness. DENIES hematemesis, brbpr, melena, or black tarry stools denies sob, chest pain, lightheadedness, or dizziness OBJECTIVE: VITALS PLS SEE BELOW Physical Examination General Exam: Positive: Alert, No Acute Distress Eye Exam: Positive: PERRLA, Conjunctiva & lids normal, EOMI; Negative: Sclera icteric ENT Exam: Positive: Atraumatic, Mucous membr. moist/pink, Pharynx Normal Neck Exam: Positive: Supple; Negative: JVD, thyromegaly Chest Exam: Positive: Clear to auscultation, Normal air movement Heart Exam: Negative: Rate Normal, Tachycardic, Bradycardic, Regular Rhythm, Irregular Rhythm, Normal S1, Normal S2, Gallops, Murmurs, Rubs, Other Abdomen Exam: Positive: Normal bowel sounds, Soft; Negative: Tenderness, Hepatospenomegaly Extremity Exam: Positive: Normal pulses; Negative: Clubbing, Cyanosis, Edema Skin Exam: Positive: Nl turgor and temperature; Negative: Breakdown, Lesion Neuro Exam: Positive: Normal Gait, Normal Speech, Cranial Nerves 3-12 NL, Reflexes 2+ Psych Exam: Positive: Mental status NL, Mood NL, Oriented x 3 LABORATORY DATA, IMAGING STUDIES, MICROBIOLOGY: PLS SEE BELOW Assessment/Plan 68f hx of cva, afib on coumadin, diet controlled dm, breast cancer, htn, who presents with tingling in her left arm and face. She believes this lasted about 30 minutes today. She also reports feeling ill for the past month. the has been coughing with thick sputum. It has improved now but she still feels malaised. She has been on antibiotics, steroids, and now albuterol. She was here in the ER last night and noted to be anemic and hyperglycemic. Her steroids were stopped. A full ROS was performed and negative except as documented above TIA reports had left CEA recently and carotid duplex two months ago which was wnl symptoms have completely resolved ABCD2 score=4 continue asa DM worsened by steroid use sliding scale finger sticks add basal bolus as needed reveiwed a1c cough likely copd duonebs prn on advair Anemia heme negative in the setting of ASA and warfarin cycled H&H iron studies afib contineu coumadin when inr comes down a little continue coreg, dig and irbasartan reviewed dig level Plan / VTE VTE Prophylaxis Ordered?: Yes VS, I&O, 24H, Fishbone Vital Signs/I&O Vital Signs Date Time Temp Pulse Resp B/P (MAP) Pulse Ox O2 Delivery O2 Flow Rate FiO2 01/16/19 05:47 97.6 77 22 139/63 (88) 95 Room Air Laboratory Data 24H LABS Laboratory Tests 2 01/15/19 21:31: Immature Granulocyte % (Auto) 0.4, White Blood Count 11.2H, Red Blood Count 2.78L, Hemoglobin 8.7L, Hematocrit 27.3L, Mean Corpuscular Volume 98.2H, Mean Corpuscular Hemoglobin 31.3, Mean Corpuscular Hemoglobin Concent 31.9L, Red Cell Distribution Width 13.2, Platelet Count 327, Neutrophils (%) (Auto) 67.8H, Lymphocytes (%) (Auto) 23.0L, Monocytes (%) (Auto) 7.9H, Eosinophils (%) (Auto) 0.8, Basophils (%) (Auto) 0.1, Neutrophils # (Auto) 7.6, Lymphocytes # (Auto) 2.6, Monocytes # (Auto) 0.9H, Eosinophils # (Auto) 0.1, Basophils # (Auto) 0.0, Nucleated Red Blood Cells % (auto) 0.0, Prothrombin Time 35.5H, Prothromb Time International Ratio 3.54, Activated Partial Thromboplast Time 35.5, Anion Gap 7L, Glomerular Filtration Rate 51.1, Blood Urea Nitrogen 20H, Creatinine 1.13, Sodium Level 136, Potassium Level 4.7, Chloride Level 99, Carbon Dioxide Level 30, Calcium Level 8.2L, Total Creatine Kinase 41, Creatine Kinase MB < 1.0, Creatine Kinase MB Relative Index 2.44, Troponin I < 0.02, SQ-Oic-V-Type Natriuretic Peptide 730H, Digoxin Level 1.0 01/15/19 21:51: Bedside Glucose (Misc Panel) 351H 01/16/19 06:27: Nucleated Red Blood Cells % (auto) 0.0, Prothrombin Time 36.0H, Prothromb Time International Ratio 3.61, Anion Gap 4L, Glomerular Filtration Rate > 60.0, Blood Urea Nitrogen 20H, Creatinine 0.88, Sodium Level 138, Potassium Level 4.5, Chloride Level 103, Carbon Dioxide Level 31, Calcium Level 8.3L, Digoxin Level 1.0, Estimated Mean Plasma Glucose 200H, Hemoglobin A1c 8.6 CBC/BMP Laboratory Tests 01/15/19 21:31 Red Blood Count 2.78 L, Mean Corpuscular Volume 98.2 H, Mean Corpuscular Hemoglobin 31.3, Mean Corpuscular Hemoglobin Concent 31.9 L, Red Cell Distribution Width 13.2, Neutrophils (%) (Auto) 67.8 H, Lymphocytes (%) (Auto) 23.0 L, Monocytes (%) (Auto) 7.9 H, Eosinophils (%) (Auto) 0.8, Basophils (%) (Auto) 0.1, Neutrophils # (Auto) 7.6, Lymphocytes # (Auto) 2.6, Monocytes # (Auto) 0.9 H, Eosinophils # (Auto) 0.1, Basophils # (Auto) 0.0, Calcium Level 8.2 L, Total Creatine Kinase 41 01/16/19 06:27 Red Blood Count 2.47 L, Mean Corpuscular Volume 101.2 H, Mean Corpuscular Hemoglobin 31.6, Mean Corpuscular Hemoglobin Concent 31.2 L, Red Cell Distribution Width 13.2, Calcium Level 8.3 L MAR SCHAEFER MD Jan 16, 2019 08:33
[2019-01-17 08:00] VITALS: BP 127/64
[2019-01-17] MEDS: SYMBICORT 80/4.5MCG INHALER 6GM INH SCH (08:00)
[2019-01-17] MEDS ORDERED: metFORMIN (GLUCOPHAGE) 500 MG TAB PO SCH (08:00)
--- NOTE | 2019-01-17 09:16 | REP ---
Duplex carotid sonography: History: TIA. Findings: Antegrade flow was observed in both vertebral arteries. Right carotid: There is a vascular stent in the common carotid artery extending into the proximal ICA on the right side. The ECA could not be assessed on the right. It may be occluded or shadowed by the stent. There is mixed plaque in the proximal ICA and distal to the stent but no plaquing is visualized within the stent. Slightly elevated systolic velocity is seen in the proximal ICA on Doppler interrogation. Pre-stent CCA velocity is 70 cm/s. Post stent ICA velocity is 108 cm/s. Peak systolic velocity in the ICA stent is 151 cm/s. EDV 60 cm/s ICA/CCA ratio is 1.4. Impression: Mixed plaquing distal to the right CCA/ICA stent. No observable plaque within the stent although somewhat stenotic flow velocities are observed. By velocity criteria, 50-69% stenosis however corresponding plaque burden not seen. Left carotid: The left common carotid artery shows a stent which extends into the ICA. There is mixed plaquing in the [place] ICA distal to the stent on the left side mild in degree. No significant plaquing is visible within the stent. No significantly elevated velocities are observed on the left. Velocity chart Left CCA pre stent 94 cm/s Post stent 107 ICA PSV 128 EDV 45 ECA PSV 80 ICA/CCA ratio 1.2. Impression: Status post left CCA/ICA stent. Some plaquing distal to the stent. No evidence of high-grade stenosis, less than 50%. Electronically Signed by Mau Segura MD 01/17/2019 12:01 P
[2019-01-17] MEDS: HumaLOG INSULIN (NovoLOG) PER UNIT SC SCH ×2 (09:43→12:01)
[2019-01-17] MEDS: ASPIRIN 81 MG ENTERIC TAB PO SCH (09:43)
[2019-01-17] MEDS: NITROFURANTOIN (MACROBID) 100 MG CAP PO SCH (09:43)
[2019-01-17] MEDS: DIGOXIN 0.25 MG TAB PO SCH (09:43)
[2019-01-17 09:44] VITALS: BP 127/64
[2019-01-17] MEDS: IRBESARTAN 150 MG TAB PO SCH (09:44)
[2019-01-17] MEDS: CARVedilol 12.5 MG TAB PO SCH (09:44)
[2019-01-17] MEDS: FUROSEMIDE 20 MG TAB PO SCH (09:45)
[2019-01-17] MEDS ORDERED: VITA-158 PO (12:18)
[2019-01-17] MEDS ORDERED: IRON65TA2 PO (12:18)
[2019-01-17] MEDS ORDERED: PRIL20TA2 PO (12:18)
[2019-01-17] MEDS ORDERED: GLUC500T PO (12:20)
--- NOTE | 2019-01-17 12:23 | IPNPDOC ---
Date Seen The patient was seen on 01/17/19. Progress Note SUBJECTIVE: Pt adamant to be discharge home today, but imaging reports unavailable and pt is anemic. "I had transfusions when I was doing chemo." MRI brain and carotid dopplers recommended by neurology. yesterday pt had 7beats nsvt on tele. echo pending. DENIES facial numbness, paresthesias, UE or LE weakness. DENIES hematemesis, brbpr, melena, or black tarry stools denies sob, chest pain, lightheadedness, or dizziness. hgb <8 on H&H monitoring, and 2u rbc transfusion planned for today. will need to continue asa and warfarin despite anemia as no obvious gi bleed with heme negative stool. pt HSE today. possible dc Saturday. OBJECTIVE: VITALS PLS SEE BELOW Physical Examination General Exam: Positive: Alert, No Acute Distress Eye Exam: Positive: PERRLA, Conjunctiva & lids normal, EOMI; Negative: Sclera icteric ENT Exam: Positive: Atraumatic, Mucous membr. moist/pink, Pharynx Normal Neck Exam: Positive: Supple; Negative: JVD, thyromegaly Chest Exam: Positive: Clear to auscultation, Normal air movement Heart Exam: Negative: Rate Normal, Tachycardic, Bradycardic, Regular Rhythm, Irregular Rhythm, Normal S1, Normal S2, Gallops, Murmurs, Rubs, Other Abdomen Exam: Positive: Normal bowel sounds, Soft; Negative: Tenderness, Hepatospenomegaly Extremity Exam: Positive: Normal pulses; Negative: Clubbing, Cyanosis, Edema Skin Exam: Positive: Nl turgor and temperature; Negative: Breakdown, Lesion Neuro Exam: Positive: Normal Gait, Normal Speech, Cranial Nerves 3-12 NL, Reflexes 2+ Psych Exam: Positive: Mental status NL, Mood NL, Oriented x 3 LABORATORY DATA, IMAGING STUDIES, MICROBIOLOGY: PLS SEE BELOW Assessment/Plan 68f hx of cva, afib on coumadin, diet controlled dm, breast cancer, htn, who presents with tingling in her left arm and face. She believes this lasted about 30 minutes today. She also reports feeling ill for the past month. the has been coughing with thick sputum. It has improved now but she still feels malaised. She has been on antibiotics, steroids, and now albuterol. She was here in the ER last night and noted to be anemic and hyperglycemic. Her steroids were stopped. A full ROS was performed and negative except as documented above TIA reports had left CEA recently and carotid duplex two months ago which was wnl symptoms have completely resolved ABCD2 score=4 continue asa and warfarin despite anemia , heme negative stool mri brain carotid dopplers appreciate neurology consultation , outpt fu w rylee [facility]ertas DM worsened by steroid use sliding scale finger sticks add basal bolus as needed reveiwed a1c metformin bid hypoglycemic protocol cough likely copd duonebs prn on advair Anemia heme negative in the setting of ASA and warfarin cycled H&H and remained<8hgb iron studies reviewed transfuse 2 urbc afib continuecoumadin when inr comes down a little continue coreg, dig and irbasartan reviewed dig level Elevated INR due to warfarin no coumadin today target 2-3 Plan / VTE VTE Prophylaxis Ordered?: Yes disposition: pt HSE today. possible dc Saturday. VS, I&O, 24H, Fishbone Vital Signs/I&O Vital Signs Date Time Temp Pulse Resp B/P (MAP) Pulse Ox O2 Delivery O2 Flow Rate FiO2 01/17/19 04:00 96.9 64 18 110/52 (71) 98 01/16/19 14:16 Room Air I&O- Last 24 Hours up to 6 AM 01/17/19 06:00 Intake Total 530 ml Output Total 660 ml Balance -130 ml Laboratory Data 24H LABS Laboratory Tests 2 01/16/19 12:36: Bedside Glucose (Misc Panel) 236H 01/16/19 16:53: Bedside Glucose (Misc Panel) 189H 01/16/19 18:51: Iron Level 36L, Total Iron Binding Capacity 335, Transferrin % Saturation 10.7L, Ferritin 8, Total Creatine Kinase 28, Creatine Kinase MB < 1.0, Creatine Kinase MB Relative Index 3.57, Troponin I 0.02 01/16/19 19:27: Reticulocyte # (auto) 63.0, Differential Slide Review Report, Peripheral Blood Smear Path Consult PERIPHERAL SMEAR, Percent Reticulocyte Count 2.5H, Reticulo cyte Hemoglobin Equivalent 25.0, Prothrombin Time 29.9H, Prothromb Time International Ratio 2.86, Activated Partial Thromboplast Time 34.3, Whole Blood Ionized Calcium 4.5, Magnesium Level 2.1 01/16/19 20:55: Urine Color YELLOW, Urine Appearance HAZY, Urine pH 6.0, Urine Specific [place] 1.023, Urine Protein NEGATIVE, Urine Glucose (UA) NEGATIVE, Urine Ketones TRACEH, Urine Blood NEGATIVE, Urine Nitrite NEGATIVE, Urine Bilirubin NEGATIVE, Urine Urobilinogen 2.0H, Urine Leukocyte Esterase 1+H, Urine WBC (Auto) 3, Urine RBC (Auto) 2, Urine Hyaline Casts (Auto) 0, Urine Bacteria (Auto) NEGATIVE, Urine Squamous Epithelial Cells 5, Urine Sperm (Auto) 01/17/19 05:41: [facility] 176H CBC/BMP Laboratory Tests 01/16/19 19:27 01/17/19 00:06 01/17/19 05:50 Microbiology Microbiology 01/16/19 Stool Occult Blood (ESTER) - Final, Complete 01/16/19 Urine Culture, Received Pending MAR SCHAEFER MD Jan 17, 2019 06:39
--- NOTE | 2019-01-17 13:07 | DS.PDOC ---
Discharge Summary General Date of Admission Jan 16, 2019 at 00:44 Date of Discharge January 17, 2019 Pt adamant about being discharged, and did not want to stay for further testing and monitoring for anemia. Discharge Summary DISCHARGE DIAGNOSES: Episodic left-sided facial pain/atypical facial pain. Atrial fibrillation bronchitis Anemia s/p 2 u rbc transfusion, heme negative stool DISCHARGE MEDICATIONS: PLS SEE BELOW HISTORY OF PRESENTING ILLNESS: 68f hx of cva, afib on coumadin, diet controlled dm, breast cancer, htn, who presents with tingling in her left arm and face. She believes this lasted about 30 minutes today. She also reports feeling ill for the past month. the has been coughing with thick sputum. It has improved now but she still feels malaised. She has been on antibiotics, steroids, and now albuterol. She was here in the ER last night and noted to be anemic and hyperglycemic. Her steroids were stopped. HOSPITAL COURSE: Atypical Facial pain on left side CEA s/p stent and afib on warfarin reports had left CEA recently and carotid duplex two months ago which was wnl symptoms have completely resolved ABCD2 score=4 continue asa and warfarin despite anemia , heme negative stool mri brain could not be done as the MRI is broken carotid dopplers-unchanged appreciate neurology consultation , outpt fu w rylee huertas DM worsened by steroid use sliding scale finger sticks add basal bolus as needed reveiwed a1c metformin bid hypoglycemic protocol bronchitis duonebs prn on advair Anemia heme negative in the setting of ASA and warfarin cycled H&H and remained<8hgb iron studies reviewed transfused 2 urbc pt refused to stay one more night for monitoring and further workup afib continuecoumadin when inr comes down a little continue coreg, dig and irbasartan reviewed dig level Elevated INR due to warfarin no coumadin today target 2-3 Plan / VTE VTE Prophylaxis Ordered?: Yes DISCHARGE PHYSICAL EXAMINATION: VITALS:PLS SEE BELOW: General Exam: Positive: Alert, No Acute Distress Eye Exam: Positive: PERRLA, Conjunctiva & lids normal, EOMI; Negative: Sclera icteric ENT Exam: Positive: Atraumatic, Mucous membr. moist/pink, Pharynx Normal Neck Exam: Positive: Supple; Negative: JVD, thyromegaly Chest Exam: Positive: Clear to auscultation, Normal air movement Heart Exam: Negative: Rate Normal, Tachycardic, Bradycardic, Regular Rhythm, Irregular Rhythm, Normal S1, Normal S2, Gallops, Murmurs, Rubs, Other Abdomen Exam: Positive: Normal bowel sounds, Soft; Negative: Tenderness, Hepatospenomegaly Extremity Exam: Positive: Normal pulses; Negative: Clubbing, Cyanosis, Edema Skin Exam: Positive: Nl turgor and temperature; Negative: Breakdown, Lesion Neuro Exam: Positive: Normal Gait, Normal Speech, Cranial Nerves 3-12 NL, Reflexes 2+ Psych Exam: Positive: Mental status NL, Mood NL, Oriented x 3 LABORATORY DATA, IMAGING STUDIES, MICROBIOLOGY: PLS SEE BELOW TIME SPENT ON DISCHARGE: 32 min. Vital Signs/I&Os Vital Signs Date Time Temp Pulse Resp B/P (MAP) Pulse Ox O2 Delivery O2 Flow Rate FiO2 01/17/19 09:44 127/64 01/17/19 09:43 74 01/17/19 08:00 97.8 18 96 01/16/19 14:16 Room Air I&O- Last 24 Hours up to 6 AM 01/17/19 06:00 Intake Total 530 ml Output Total 660 ml Balance -130 ml Laboratory Data Labs 24H Laboratory Tests 2 01/16/19 16:53: Bedside Glucose (Misc Panel) 189H 01/16/19 18:51: Iron Level 36L, Total Iron Binding Capacity 335, Transferrin % Saturation 10.7L, Ferritin 8, Total Creatine Kinase 28, Creatine Kinase MB < 1.0, Creatine Kinase MB Relative Index 3.57, Troponin I 0.02 01/16/19 19:27: Reticulocyte # (auto) 63.0, Differential Slide Review Report, Peripheral Blood Smear Path Consult PERIPHERAL SMEAR, Percent Reticulocyte Count 2.5H, Reticulocyte Hemoglobin Equivalent 25.0, Prothrombin Time 29.9H, Prothromb Time International Ratio 2.86, Activated Partial Thromboplast Time 34.3, Whole Blood Ionized Calcium 4.5, Magnesium Level 2.1 01/16/19 20:55: Urine Color YELLOW, Urine Appearance HAZY, Urine pH 6.0, Urine Specific [place] 1.023, Urine Protein NEGATIVE, Urine Glucose (UA) NEGATIVE, Urine Ketones TRACEH, Urine Blood NEGATIVE, Urine Nitrite NEGATIVE, Urine Bilirubin NEGATIVE, Urine Urobilinogen 2.0H, Urine Leukocyte Esterase 1+H, Urine WBC (Auto) 3, Urine RBC (Auto) 2, Urine Hyaline Casts (Auto) 0, Urine Bacteria (Auto) NEGATIVE, Urine Squamous Epithelial Cells 5, Urine Sperm (Auto) 01/17/19 05:41: Bedside Glucose (Misc Panel) 176H 01/17/19 11:13: Bedside Glucose (Misc Panel) 289H CBC/BMP Laboratory Tests 01/16/19 19:27 01/17/19 00:06 01/17/19 05:50 FSBS Laboratory Tests Test 01/16/19 16:53 01/17/19 05:41 01/17/19 11:13 Range/Units Bedside Glucose (Misc Panel) 189 176 289 80-115 MG/DL Microbiology Microbiology 01/16/19 Stool Occult Blood (ESTER) - Final, Complete 01/16/19 Urine Culture, Received Pending Discharge Medications Scheduled Alprazolam (Alprazolam) 0.5 Mg Tablet, 0.25 MG PO QHS, (Reported) Ascorbic Acid (Vitamin C) 500 Mg Tablet, 1 TAB PO DAILY Aspirin (Aspirin EC) 81 Mg Tablet.dr, 81 MG PO DAILY, (Reported) Carvedilol (Carvedilol) 12.5 Mg Tablet, 12.5 MG PO QID, (Reported) HOLD IF SBP<140 Cholecalciferol (Vitamin D3) (Vitamin D3) 1,000 Unit Tab, 1,000 UNIT PO QHS, (Reported) Digoxin (Digoxin) 250 Mcg Tab, 125 MCG PO BID, (Reported) Ferrous Sulfate (Iron) 325 Mg Tablet, 1 TAB PO DAILY Furosemide (Furosemide) 20 Mg Tab, 20 MG PO DAILY, (Reported) Irbesartan (Irbesartan) 75 Mg Tablet, 75 MG PO TID, (Reported) HOLD IF SBP<140 Metformin HCl (Glucophage) 500 Mg Tablet, 500 MG PO BID@08,18 Multivitamins (Thera M Plus Tablet) 1 Each Tablet, 1 TAB PO QHS, (Reported) Nitrofurantoin Monohyd/M-Cryst (Macrobid 100 mg Capsule) 100 Mg Capsule, 100 MG PO BID, (Reported) Omeprazole Magnesium (Prilosec Otc) 20 Mg Tablet.dr, 20 MG PO DAILY Potassium Chloride (Klor-Con M10) 10 Meq Tabcr, 10 MEQ PO DAILY, (Reported) TAKES AT 1400 Rosuvastatin Calcium (Rosuvastatin Calcium) 20 Mg Tablet, 20 MG PO QHS, (Reported) Warfarin Sodium (Coumadin) 4 Mg Tablet, 8 MG PO 3XW, (Reported) SATURDAY, SATURDAY AND SATURDAY AT 1400 Warfarin Sodium (Warfarin Sodium) 4 Mg Tablet, 6 MG PO 4XWK, (Reported) SATURDAY, SATURDAY, SATURDAY, SATURDAY AT 1400 Scheduled PRN Albuterol Sulfate (Proair Hfa) 8.5 Gm Hfa.aer.ad, 2 PUFF INH Q4H PRN for SHORTNESS OF BREATH, (Reported) Docusate Sodium (Docusate Sodium) 100 Mg Capsule, 100 MG PO BID PRN for CONSTIPATION, (Reported) Allergies Coded Allergies: Sulfa (Sulfonamide Antibiotics) (Verified Allergy, Unknown, 01/14/19) codeine (Verified Adverse Reaction, Intermediate, N+V, 01/14/19) MAR SCHAEFER MD Jan 17, 2019 13:00
[2019-01-17 15:09] LABS: HEMATOCRIT 30.2 % (36.0-47.0)
[2019-01-17 15:15] LABS: HEMOGLOBIN 10.1 g/dl (12.0-15.5)
== END 2019-01-17 15:26 | disposition home or self-care (01) | DRG 74 ==
LOC: M ED 20:31 → M ED INP 01-16 00:44 → M PCU 01-16 14:28
PROVIDERS: ADMIT Hospitalist; ATTEND General Practice
PROC: 30233N1 Transfusion of Nonautologous Red Blood Cells into Peripheral Vein, Percutaneous Approach (ICD-10-PCS; principal; 2019-01-17)
DX: G50.1 Atypical facial pain (principal); E11.65 Type 2 diabetes mellitus with hyperglycemia; I48.91 Unspecified atrial fibrillation; D64.9 Anemia, unspecified; J40 Bronchitis, not specified as acute or chronic; Z86.73 Personal history of transient ischemic attack (TIA), and cerebral infarction without residual deficits; Z79.01 Long term (current) use of anticoagulants; E11.9 Type 2 diabetes mellitus without complications; I10 Essential (primary) hypertension; Z95.2 Presence of prosthetic heart valve; Z79.82 Long term (current) use of aspirin; Z79.899 Other long term (current) drug therapy; Z88.2 Allergy status to sulfonamides; Z88.5 Allergy status to narcotic agent; Z85.3 Personal history of malignant neoplasm of breast

== ENCOUNTER → 2019-01-20 | Outpatient (CLI) | payer MEDICARE ==
[~2019-01-20] MED LIST changes: +ASPI-161 PO; +CARV12.5 PO; +DIGO0.25 PO; -DIGO0.253 PO; +DOCU100C16 PO; +GLUC500T PO; +IRBE75TA5 PO; +IRON65TA2 PO; +MECL-68 PO; -MECL1TAB31 PO; +PRIL20TA2 PO; +PROAAER10 INH; +VITA-158 PO; +VITMTA PO; +WARF-20 PO
[2019-01-20 17:14] LABS: HEMOGLOBIN 11.2 g/dl (12.0-15.5); MEAN CORPUSCULAR HEMOGLOBIN 30.7 pg (27.0-33.0); MEAN CORPUSCULAR HGB CONC 31.1 g/dl (32.0-36.5); MEAN CORPUSCULAR VOLUME 98.6 fl (80.0-96.0); PLATELET COUNT, AUTOMATED 245 10^3/uL (150-450); RED BLOOD COUNT 3.65 10^6/uL (4.00-5.40); WHITE BLOOD COUNT 10.6 10^3/uL (4.0-10.0)
== END ==
LOC: M SMT 13:25
PROVIDERS: ATTEND Family Medicine
DX: D64.9 Anemia, unspecified (principal)

== ENCOUNTER → 2019-03-17 | Outpatient (CLI) | payer MEDICARE ==
[2019-03-17 18:20] LABS: BLOOD UREA NITROGEN 19 MG/DL (7-18); CALCIUM LEVEL 9.1 MG/DL (8.8-10.2); CARBON DIOXIDE LEVEL 30 MEQ/L (21-32); CHLORIDE LEVEL 104 MEQ/L (98-107); CREATININE FOR GFR 0.93 MG/DL (0.55-1.30); GLOMERULAR FILTRATION RATE > 60.0 (>45); GLUCOSE, FASTING 202 MG/DL (70-100); POTASSIUM SERUM 4.2 MEQ/L (3.5-5.1); SODIUM LEVEL 142 MEQ/L (136-145)
[2019-03-17 18:25] LABS: HEMATOCRIT 34.8 % (36.0-47.0); HEMOGLOBIN 11.3 g/dl (12.0-15.5); MEAN CORPUSCULAR HEMOGLOBIN 33.1 pg (27.0-33.0); MEAN CORPUSCULAR HGB CONC 32.5 g/dl (32.0-36.5); MEAN CORPUSCULAR VOLUME 102.1 fl (80.0-96.0); PLATELET COUNT, AUTOMATED 218 10^3/uL (150-450); RED BLOOD COUNT 3.41 10^6/uL (4.00-5.40); WHITE BLOOD COUNT 7.2 10^3/uL (4.0-10.0)
== END ==
LOC: M SMT 11:27
PROVIDERS: ATTEND Family Medicine
DX: D64.9 Anemia, unspecified (principal); Z79.01 Long term (current) use of anticoagulants

== ENCOUNTER → 2019-04-22 | Outpatient (CLI) | payer MEDICARE ==
[2019-04-22 13:16] LABS: HEMATOCRIT 40.1 % (36.0-47.0); HEMOGLOBIN 13.1 g/dl (12.0-15.5); MEAN CORPUSCULAR HEMOGLOBIN 32.6 pg (27.0-33.0); MEAN CORPUSCULAR HGB CONC 32.7 g/dl (32.0-36.5); MEAN CORPUSCULAR VOLUME 99.8 fl (80.0-96.0); PLATELET COUNT, AUTOMATED 221 10^3/uL (150-450); RED BLOOD COUNT 4.02 10^6/uL (4.00-5.40); WHITE BLOOD COUNT 9.8 10^3/uL (4.0-10.0)
== END ==
LOC: M SMT 11:15
PROVIDERS: ATTEND Family Medicine
DX: D64.9 Anemia, unspecified (principal)

== ENCOUNTER → 2019-08-20 | Outpatient (CLI) | payer MEDICARE ==
[~2019-08-20] MED LIST changes: -DIGO0.25 PO; +DIGO0.253 PO; -IRBE150T12 PO; +IRBE150T7 PO; +IRBE75TA4; +IRBE75TA4 PO; -IRBE75TA5; -IRBE75TA5 PO; -MECL-68 PO; +MECL1TAB31 PO
[2019-08-20 12:40] LABS: HEMATOCRIT 38.3 % (36.0-47.0); HEMOGLOBIN 12.4 g/dl (12.0-15.5); MEAN CORPUSCULAR HEMOGLOBIN 33.7 pg (27.0-33.0); MEAN CORPUSCULAR HGB CONC 32.4 g/dl (32.0-36.5); MEAN CORPUSCULAR VOLUME 104.1 fl (80.0-96.0); PLATELET COUNT, AUTOMATED 211 10^3/uL (150-450); RED BLOOD COUNT 3.68 10^6/uL (4.00-5.40); WHITE BLOOD COUNT 8.9 10^3/uL (4.0-10.0)
[2019-08-20 13:12] LABS: ALBUMIN 3.4 GM/DL (3.2-5.2); ALT/SGPT 25 U/L (12-78); BILIRUBIN,TOTAL 0.4 MG/DL (0.2-1.0); BLOOD UREA NITROGEN 13 MG/DL (7-18); CALCIUM LEVEL 8.9 MG/DL (8.8-10.2); CARBON DIOXIDE LEVEL 32 MEQ/L (21-32); CHLORIDE LEVEL 105 MEQ/L (98-107); CHOLESTEROL LEVEL 105 MG/DL (<200); CREATININE FOR GFR 0.78 MG/DL (0.55-1.30); GLOMERULAR FILTRATION RATE > 60.0 (>45); GLUCOSE, FASTING 159 MG/DL (70-100); HDL CHOLESTEROL 29 MG/DL (>40); LDL CHOLESTEROL 33 MG/DL (<100); MAGNESIUM LEVEL 1.7 MG/DL (1.8-2.4); NON-HDL-C 76 MG/DL; POTASSIUM SERUM 4.4 MEQ/L (3.5-5.1); SODIUM LEVEL 143 MEQ/L (136-145); TOTAL PROTEIN 6.4 GM/DL (6.4-8.2); TRIGLYCERIDES LEVEL 213 MG/DL (<150)
== END ==
LOC: M PLALAB 09:06
PROVIDERS: ATTEND Physician Assistant
DX: I48.0 Paroxysmal atrial fibrillation (principal); E78.2 Mixed hyperlipidemia; I11.9 Hypertensive heart disease without heart failure

== ENCOUNTER → 2019-09-07 | Outpatient (CLI) | payer MEDICARE ==
--- NOTE | 2019-09-07 17:43 | REPMRS ---
Patient History The patient states she has not had a clinical breast exam in over a year. Family history of unknown cancer at age 62 in father, breast cancer at age 63 in sister. Personal history of left breast cancer at age 60. Digital Woman Screen Mammo: September 07, 2019 - Exam #: [id number] Bilateral CC and MLO view(s) were taken. Technologist: Shantell Carbajal, Technologist Prior study comparison: September 02, 2018, right breast digital mammo diagnostic unilateral, performed at [facility]. August 26, 2018, bilateral digital mammo screening bilat, performed at [facility]. FINDINGS: There are scattered fibroglandular densities. There are numerous benign calcifications and there is vascular calcification bilaterally. Stable post-treatment changes are noted in the left breast. The previously noted central right breast density has regressed. There is a moderate amount of residual fibroglandular tissue which is fairly symmetric. There is no interval development of dominant mass, architectural distortion, or grouped microcalcification typical of malignancy. There has been no change in the appearance of the mammogram from the prior studies. 3-D tomosynthesis shows no additional findings. Assessment: BI-RADS/ACR category 2 mammogram. Benign Findings. Recommendation Routine screening mammogram of both breasts in 1 year (for women over age 40). This mammogram was interpreted with the aid of an FDA-approved computer-aided dectection system. Electronically Signed By: Vladimir Segura MD 09/07/19 [id number]
== END ==
LOC: M WHC 14:00
PROVIDERS: ATTEND Internal Medicine Medical Oncology
DX: Z12.31 Encounter for screening mammogram for malignant neoplasm of breast (principal); Z80.3 Family history of malignant neoplasm of breast; Z85.3 Personal history of malignant neoplasm of breast

== ENCOUNTER → 2019-10-20 | Outpatient (CLI) | payer MEDICARE ==
[2019-10-20 13:46] LABS: APPEARANCE, URINE CLEAR (CLEAR); BACTERIA, URINE AUTO NEGATIVE (NEGATIVE); BILIRUBIN, URINE AUTO NEGATIVE (NEGATIVE); BLOOD, URINE BLOOD NEGATIVE (NEGATIVE); COLOR, URINE STRAW (YELLOW); GLUCOSE, URINE (UA) AUTO NEGATIVE (NEGATIVE); KETONE, URINE AUTO NEGATIVE (NEGATIVE); LEUKOCYTE ESTERASE, URINE AUTO NEGATIVE (NEGATIVE); NITRITE, URINE AUTO NEGATIVE (NEGATIVE); PROTEIN, URINE AUTO NEGATIVE (NEGATIVE); RBC, URINE AUTO 0 /HPF (0-3); SPECIFIC GRAVITY URINE AUTO 1.006 (1.002-1.035); SQUAMOUS EPITHELIAL CELL UR AU 0 /HPF (0-6); UROBILINOGEN, URINE AUTO 0.2 mg/dL (0.0-2.0); WBC, URINE AUTO 0 /HPF (0-3)
[2019-10-20 13:54] LABS: HEMATOCRIT 44.5 % (36.0-47.0); HEMOGLOBIN 14.8 g/dl (12.0-15.5); MEAN CORPUSCULAR HEMOGLOBIN 33.6 pg (27.0-33.0); MEAN CORPUSCULAR HGB CONC 33.3 g/dl (32.0-36.5); MEAN CORPUSCULAR VOLUME 100.9 fl (80.0-96.0); PLATELET COUNT, AUTOMATED 203 10^3/uL (150-450); RED BLOOD COUNT 4.41 10^6/uL (4.00-5.40); WHITE BLOOD COUNT 9.1 10^3/uL (4.0-10.0)
[2019-10-20 13:58] LABS: ALBUMIN 3.7 GM/DL (3.2-5.2); ALT/SGPT 32 U/L (12-78); BILIRUBIN,TOTAL 0.6 MG/DL (0.2-1.0); BLOOD UREA NITROGEN 16 MG/DL (7-18); C REACTIVE PROTEIN QUANTITATIV < 0.30 MG/DL (0.00-0.30); CALCIUM LEVEL 9.2 MG/DL (8.8-10.2); CARBON DIOXIDE LEVEL 33 MEQ/L (21-32); CHLORIDE LEVEL 103 MEQ/L (98-107); CREATININE FOR GFR 0.89 MG/DL (0.55-1.30); GLOMERULAR FILTRATION RATE > 60.0 (>45); GLUCOSE, FASTING 146 MG/DL (70-100); LDH LACTATE DEHYDROGENASE 211 U/L (84-246); POTASSIUM SERUM 4.1 MEQ/L (3.5-5.1); SODIUM LEVEL 139 MEQ/L (136-145); THYROID STIMULATING HORMONE 0.834 uIU/ML (0.358-3.740); TOTAL PROTEIN 7.3 GM/DL (6.4-8.2)
[2019-10-20 15:34] LABS: ERYTHROCYTE SEDIMENTATION RATE 26 mm/hr (0-30)
== END ==
LOC: M PLALAB 11:04
PROVIDERS: ATTEND Family Medicine
DX: R63.4 Abnormal weight loss (principal)

== ENCOUNTER → 2019-10-21 | Outpatient (CLI) | payer MEDICARE ==
--- NOTE | 2019-10-21 11:07 | REP ---
REASON: Tobacco abuse. PRIOR: 10/01/2018 As per the protocol, only lung window images were sent to the read station for interpretation. There is no significant change. There is a stable 6 mm size nodule in the lingula. There are stable chronic lung field changes. There are no new abnormal nodules, masses, or opacities. IMPRESSION: Stable lung CT screening examination. Lung RADS category 1. Electronically Signed by Osmani Manning DO 10/21/2019 11:13 A
== END ==
LOC: M RAD 10:25
PROVIDERS: ATTEND Internal Medicine Medical Oncology
DX: F17.218 Nicotine dependence, cigarettes, with other nicotine-induced disorders (principal); Z85.3 Personal history of malignant neoplasm of breast

== ENCOUNTER 2020-05-17 22:46 | Emergency (ER) | payer MEDICARE ==
[~2020-05-17] VITALS: Ht 177.8 cm; Wt 62.0 kg
[~2020-05-17 22:46] MED LIST changes: +AMLO1TAB24 PO; -AMLO5TAB6 PO; -COUM1TAB14 PO; +COUM4TAB8 PO; -COUM6TAB PO; +COUM6TAB10 PO
[2020-05-17] MEDS ORDERED: NS 1,000 ML IV ONE (23:45)
[2020-05-18] MEDS ORDERED: ONDANSETRON 4MG/2ML VIAL IV ONE (00:15)
[2020-05-18 01:07] LABS: BASO % 0.3 % (0.0-1.0); EOS % 10.5 % (0.0-3.0); HEMOGLOBIN 14.6 g/dl (12.0-15.5); LYMPH # 2.1 10^3/uL (1.5-5.0); LYMPH % 22.8 % (24.0-44.0); MEAN CORPUSCULAR HGB CONC 34.8 g/dl (32.0-36.5); MEAN CORPUSCULAR VOLUME 100.7 fl (80.0-96.0); MONO # 0.8 10^3/uL (0.0-0.8); MONO % 8.6 % (0.0-5.0); NEUTROPHILS # 5.3 10^3/uL (1.5-8.5); NEUTROPHILS % 57.6 % (36.0-66.0); PLATELET COUNT, AUTOMATED 196 10^3/uL (150-450); RED BLOOD COUNT 4.17 10^6/uL (4.00-5.40); WHITE BLOOD COUNT 9.2 10^3/uL (4.0-10.0)
[2020-05-18 01:21] LABS: PROTHROMBIN TIME 68.7 SECONDS (12.5-14.3)
[2020-05-18 01:48] LABS: INR 7.97
[2020-05-18 01:50] LABS: ALBUMIN 3.5 GM/DL (3.2-5.2); ALT/SGPT 24 U/L (12-78); BILIRUBIN,DIRECT 0.2 MG/DL (0.0-0.2); BILIRUBIN,TOTAL 0.5 MG/DL (0.2-1.0); BLOOD UREA NITROGEN 16 MG/DL (7-18); CALCIUM LEVEL 9.1 MG/DL (8.8-10.2); CARBON DIOXIDE LEVEL 28 MEQ/L (21-32); CHLORIDE LEVEL 106 MEQ/L (98-107); CK-MB VALUE MASS 1.9 NG/ML (<3.6); CPK CREATINE PHOSPHOKINASE 62 U/L (26-192); CREATININE FOR GFR 0.89 MG/DL (0.55-1.30); GLOMERULAR FILTRATION RATE > 60.0 (>45); GLUCOSE, FASTING 121 MG/DL (70-100); LIPASE 78 U/L (73-393); MB/CK RELATIVE INDEX 3.06 (< OR =4); POTASSIUM SERUM 4.3 MEQ/L (3.5-5.1); SODIUM LEVEL 141 MEQ/L (136-145); TOTAL PROTEIN 6.8 GM/DL (6.4-8.2); TROPONIN I < 0.02 NG/ML (< 0.10)
[2020-05-18 02:37] VITALS: BP 143/63
[2020-05-18] MEDS ORDERED: PHYTONADIONE 5 MG TAB PO ONE (02:45)
[2020-05-18] MEDS ORDERED: ONDA4TAB6 PO (02:49)
[2020-05-18] MEDS ORDERED: TESS100C PO (02:49)
[2020-05-18] MEDS ORDERED: BENZONATATE 100 MG CAP PO ONE (03:00)
--- NOTE | 2020-05-19 18:49 | ECGEPIP ---
[facility] - ED Test Date: 2020-05-18 Pat Name: DOROTEO STONER Department: Room: - Gender: Female Central Office Supervisor: rory : 1950 Requested By: BARRINGTON Hoffman Order Number: [id number] Reading MD: Moriah Bar Measurements Intervals [place] Rate: 88 P: [place]: 0 QRS: -59 QRSD: 142 T: 9 QT: 358 QTc: 433 Interpretive Statements ATRIAL FIBRILLATION RIGHT BUNDLE BRANCH BLOCK LEFT ANTERIOR FASCICULAR BLOCK MINIMAL VOLTAGE CRITERIA FOR LVH, CONSIDER NORMAL VARIANT POSSIBLE SEPTAL MYOCARDIAL INFARCTION, PROBABLY OLD Electronically Signed on 05-19-2020 18:48:55 EST by Moriah Bar
== END 2020-05-18 03:05 | disposition home or self-care (01) ==
LOC: M ED 22:46
DX: R11.10 Vomiting, unspecified (principal); B34.9 Viral infection, unspecified; I10 Essential (primary) hypertension; I48.91 Unspecified atrial fibrillation; Z79.899 Other long term (current) drug therapy; Z79.82 Long term (current) use of aspirin; Z79.01 Long term (current) use of anticoagulants; Z88.1 Allergy status to other antibiotic agents; Z88.2 Allergy status to sulfonamides; Z88.5 Allergy status to narcotic agent; F17.210 Nicotine dependence, cigarettes, uncomplicated
CPT/HCPCS: 80048; 80076; 82550; 82553; 83605; 83690; 84484; 85025; 85610; 87486; 87581; 87633; 87798; 93005; 93041; 96361; 96374; 99284; J2405

== ENCOUNTER 2020-06-05 10:48 | Emergency (ER) | payer MEDICARE ==
[~2020-06-05] VITALS: Ht 177.8 cm; Wt 63.0 kg
[~2020-06-05 10:48] MED LIST changes: +ONDA4TAB6 PO; +TESS100C PO
[2020-06-05] MEDS ORDERED: VITA-122 PO (11:22)
[2020-06-05] MEDS ORDERED: FERR325T3 PO (11:22)
[2020-06-05] MEDS ORDERED: WARF-20 PO (11:22)
[2020-06-05] MEDS ORDERED: CIPR500T3 PO (11:24)
[2020-06-05] MEDS ORDERED: METR-265 PO (11:24)
[2020-06-05 12:12] LABS: BASO # 0.1 10^3/uL (0.0-0.2); BASO % 0.7 % (0.0-1.0); EOS # 0.8 10^3/uL (0.0-0.5); EOS % 10.1 % (0.0-3.0); HEMATOCRIT 40.8 % (36.0-47.0); HEMOGLOBIN 13.5 g/dl (12.0-15.5); LYMPH # 1.6 10^3/uL (1.5-5.0); LYMPH % 21.4 % (24.0-44.0); MEAN CORPUSCULAR HEMOGLOBIN 33.8 pg (27.0-33.0); MEAN CORPUSCULAR HGB CONC 33.1 g/dl (32.0-36.5); MONO # 0.4 10^3/uL (0.0-0.8); MONO % 5.6 % (0.0-5.0); NEUTROPHILS # 4.6 10^3/uL (1.5-8.5); NEUTROPHILS % 61.9 % (36.0-66.0); PLATELET COUNT, AUTOMATED 192 10^3/uL (150-450); WHITE BLOOD COUNT 7.4 10^3/uL (4.0-10.0)
[2020-06-05 12:46] LABS: ALBUMIN 3.2 GM/DL (3.2-5.2); ALT/SGPT 50 U/L (12-78); BILIRUBIN,DIRECT 0.2 MG/DL (0.0-0.2); BILIRUBIN,TOTAL 0.4 MG/DL (0.2-1.0); BLOOD UREA NITROGEN 11 MG/DL (7-18); CALCIUM LEVEL 8.3 MG/DL (8.8-10.2); CARBON DIOXIDE LEVEL 28 MEQ/L (21-32); CHLORIDE LEVEL 110 MEQ/L (98-107); CREATININE FOR GFR 0.91 MG/DL (0.55-1.30); GLOMERULAR FILTRATION RATE > 60.0 (>45); GLUCOSE, FASTING 133 MG/DL (70-100); LIPASE 132 U/L (73-393); POTASSIUM SERUM 3.7 MEQ/L (3.5-5.1); SODIUM LEVEL 142 MEQ/L (136-145); TOTAL PROTEIN 6.2 GM/DL (6.4-8.2)
[2020-06-05] MEDS ORDERED: ISOVUE-370 76% 100ML VIAL As Ordered ONE (13:06)
--- NOTE | 2020-06-05 13:37 | REP ---
INDICATION: abd pain with diarrhea r/o diverticulitis. COMPARISON: 06/04/2018 TECHNIQUE: Axial contrast-enhanced images from the lung bases to the pubic symphysis using 100 cc Isovue 370 intravenous contrast material. Coronal and sagittal reformations obtained. This CT examination was performed using the following dose reduction techniques: Automated exposure control, adjustment of mA and/or kv according to the patient's size, and the use of iterative reconstruction technique. FINDINGS: There is mild enhancement of the terminal ileum as well as fluid-filled appearance to the: Suggesting the possibility of infectious/inflammatory enterocolitis. There is no bowel obstruction. Scattered colonic and sigmoid diverticula noted without acute evidence for diverticulitis. No free air or free fluid. Liver, spleen, pancreas, and bilateral adrenal glands are normal. Kidneys demonstrate chronic stable changes including atrophic appearance to the left kidney with benign cysts measuring up to 4.1 cm as well as small right benign appearing cysts and mild bilateral chronic perinephric stranding. No hydronephrosis. Pelvis demonstrates normal bladder and evidence for prior hysterectomy. No ascites. No free air. No adenopathy. Atherosclerotic changes to the aorta and vasculature noted. Musculoskeletal structures demonstrate degenerative changes. Lung bases demonstrate chronic age-related interstitial changes. Visualized portions of the heart and pericardium are normal. IMPRESSION: 1. Cannot exclude a mild enterocolitis and correlation is recommended. 2. No ascites. No focal inflammatory stranding. No adenopathy. 3. Stable chronic changes similar to 06/04/2018. <Electronically signed by Jose Miller > 06/05/20 [id number]
[2020-06-05 14:10] VITALS: BP 180/80
== END 2020-06-05 14:22 | disposition home or self-care (01) ==
LOC: M ED 10:48
DX: R19.7 Diarrhea, unspecified (principal); E11.9 Type 2 diabetes mellitus without complications; I10 Essential (primary) hypertension; Z85.3 Personal history of malignant neoplasm of breast; Z79.899 Other long term (current) drug therapy; Z79.82 Long term (current) use of aspirin; Z79.01 Long term (current) use of anticoagulants; F17.210 Nicotine dependence, cigarettes, uncomplicated
CPT/HCPCS: 36415; 74177; 80048; 80076; 83690; 85025; 87507; 99284; Q9967

== ENCOUNTER → 2020-09-08 | Outpatient (CLI) | payer MEDICARE ==
[~2020-09-08] MED LIST changes: +CIPR500T3 PO; +FERR325T3 PO; +METR-265 PO; +VITA-168 PO
--- NOTE | 2020-09-08 13:13 | REPMRS ---
Patient History The patient states she has not had a clinical breast exam in over a year. Patient is postmenopausal, has history of breast cancer at age 60, has history of cancer in the left breast at age 58, and had previous chemotherapy. Family history of unknown cancer at age 62 in father, breast cancer at age 63 in sister. Radiation therapy of the left breast, 2010. Malignant excisional biopsy of the left breast, 2008. Chemotherapy. 3D TOMOSYNTHESIS WAS PERFORMED. Volpara breast density c. Digital Woman Screen Mammo: September 08, 2020 - Exam #: [id number] Bilateral CC and MLO view(s) were taken. Technologist: Cynthia Live, Technologist Prior study comparison: September 07, 2019, bilateral digital woman screen mammo performed at [facility]. September 02, 2018, right breast digital mammo diagnostic unilateral, performed at [facility]. FINDINGS: There are scattered fibroglandular densities. There is a fairly symmetric fibroglandular pattern in both breasts. There has been no interval development of masses, areas of architectural distortion or clusters of microcalcifications typical of malignancy. Large coarse benign appearing calcifications are present. No significant changes when compared with prior studies. Assessment: BI-RADS/ACR category 2 mammogram. Benign Findings. Recommendation Routine screening mammogram of both breasts in 1 year (for women over age 40). This mammogram was interpreted with the aid of an FDA-approved computer-aided dectection system. Electronically Signed By: Kirill Mari MD 09/08/20 [id number]
== END ==
LOC: M WHC 11:34
PROVIDERS: ATTEND Internal Medicine Hematology & Oncology
DX: Z12.31 Encounter for screening mammogram for malignant neoplasm of breast (principal)

== ENCOUNTER → 2020-11-09 | Outpatient (CLI) | payer MEDICARE ==
--- NOTE | 2020-11-09 12:38 | REP ---
INDICATION: ENCOUNTER SCREENING. COMPARISON: 10/21/2019 and 10/01/2018 TECHNIQUE: Axial noncontrast images from the thoracic inlet to the upper abdomen using low-dose lung screening technique (LDCT). As per the protocol only lung window images were sent to the read station for interpretation FINDINGS: There is mild biapical pleuroparenchymal scarring status quo. There is a 7 mm size nodule in the extreme left CP angle which may have gotten slightly larger from the prior exams. In the right middle lobe there is an irregular density which measures 1.3 cm in its greatest dimension and representing a change from the prior exams. There are no other significant changes. There is cylindrical bronchiectasis status quo. No pleural or pericardial effusions have developed. Grossly, the mediastinum and pulmonary per are unchanged. Grossly, the imaged upper abdomen and imaged osseous structures are unchanged. IMPRESSION: 1. Small nodule in the extreme left CP angle which may have increased in size as described above. Consider re-evaluation with diagnostic chest CT 2. New asymmetric density in the right middle lobe. Etiology uncertain. Close interval follow-up is suggested. 3. Other chronic lung field changes which appears stable. <Electronically signed by Osmani Manning > 11/09/20 [id number]
== END ==
LOC: M RAD 10:52
PROVIDERS: ATTEND Family Medicine
DX: Z12.2 Encounter for screening for malignant neoplasm of respiratory organs (principal); R91.1 Solitary pulmonary nodule; J98.4 Other disorders of lung; F17.210 Nicotine dependence, cigarettes, uncomplicated

== ENCOUNTER → 2021-03-10 | Outpatient (CLI) | payer MEDICARE ==
--- NOTE | 2021-03-10 12:11 | REP ---
INDICATION: ABN FINDINGS OF LUNG FIELD. Patient gives history breast carcinoma. COMPARISON: Comparison is made with multiple prior chest CT studies, the most recent which is from November 09, 2020 and the most remote is dated June 07, 2009. TECHNIQUE: Helical scanning is acquired. 3 mm axial images are generated. Coronal and sagittal MPR and coronal MIP images are generated. FINDINGS: Preliminary digital car wash manager radiograph is noncontributory. Overall the lungs remain somewhat hyperinflated. There is a new patchy predominantly alveolar infiltrate producing mild consolidation in the left lower lobe. There are inspissated endobronchial secretions in the left lower lobe segmental and subsegmental bronchi. Question bronchitis. Previously noted pleural based nodule along the minor fissure is again seen measuring 6 mm in greatest diameter. This is unchanged from multiple prior studies including October 01, 2018. The most recently identified right middle lobe density is resolved. No pleural or pericardial effusion is seen. Extensive vascular calcification is noted. No hilar or mediastinal mass or adenopathy is seen. There are bilateral renal artery stents noted in place. There is a hyperdense cyst in the left kidney posteriorly 2 cm in diameter and a low-density cyst is seen in the upper pole the left kidney 2 cm in diameter. These are unchanged from 05 June 2020. There are multiple surgical clips in the left axilla. Multiple coarse benign calcifications are seen in each breast. No extra thoracic mass or adenopathy is seen. IMPRESSION: New infiltrate in the left base consistent with pneumonia. Stable left lower lobe nodule pleural based. Recently identified right middle lobe density has resolved. <Electronically signed by Vladimir Segura > 03/10/21 [id number]
== END ==
LOC: M RAD 10:15
PROVIDERS: ATTEND Internal Medicine Pulmonary Disease
DX: R91.8 Other nonspecific abnormal finding of lung field (principal)

== ENCOUNTER → 2021-03-10 | Outpatient (CLI) | payer MEDICARE ==
[2021-03-10 08:06] LABS: HEMATOCRIT 37.7 % (36.0-47.0); HEMOGLOBIN 12.9 g/dl (12.0-15.5); MEAN CORPUSCULAR HEMOGLOBIN 35.1 pg (27.0-33.0); MEAN CORPUSCULAR HGB CONC 34.2 g/dl (32.0-36.5); MEAN CORPUSCULAR VOLUME 102.7 fl (80.0-96.0); PLATELET COUNT, AUTOMATED 168 10^3/uL (150-450); RED BLOOD COUNT 3.67 10^6/uL (4.00-5.40); WHITE BLOOD COUNT 7.5 10^3/uL (4.0-10.0)
[2021-03-10 08:32] LABS: ALBUMIN 3.3 GM/DL (3.2-5.2); ALT/SGPT 26 U/L (12-78); BILIRUBIN,TOTAL 0.6 MG/DL (0.2-1.0); BLOOD UREA NITROGEN 11 MG/DL (7-18); CALCIUM LEVEL 8.9 MG/DL (8.8-10.2); CARBON DIOXIDE LEVEL 31 MEQ/L (21-32); CHLORIDE LEVEL 107 MEQ/L (98-107); CHOLESTEROL LEVEL 94 MG/DL (<200); CHOLESTEROL RISK RATIO 2.685 (<5); CREATININE FOR GFR 0.76 MG/DL (0.55-1.30); GLOMERULAR FILTRATION RATE > 60.0 (>39); GLUCOSE, FASTING 92 MG/DL (70-100); HDL CHOLESTEROL 35 MG/DL (>40); LDL CHOLESTEROL 38 MG/DL (<100); MAGNESIUM LEVEL 1.8 MG/DL (1.8-2.4); NON-HDL-C 59 MG/DL; SODIUM LEVEL 143 MEQ/L (136-145); TOTAL PROTEIN 6.5 GM/DL (6.4-8.2); TRIGLYCERIDES LEVEL 105 MG/DL (<150)
== END ==
LOC: M PLALAB 07:41
PROVIDERS: ATTEND Physician Assistant
DX: I48.0 Paroxysmal atrial fibrillation (principal); I11.9 Hypertensive heart disease without heart failure; E78.2 Mixed hyperlipidemia

== ENCOUNTER → 2021-03-21 | Outpatient (REF) | payer MEDICARE ==
[~2021-03-21] MED LIST changes: -KLOR10TA76 PO; +POTA-136 PO
== END ==
LOC: M LAB REF 12:55
PROVIDERS: ATTEND Internal Medicine Pulmonary Disease
DX: J47.9 Bronchiectasis, uncomplicated (principal)

== ENCOUNTER → 2021-03-28 | Outpatient (REF) | payer MEDICARE | LOC: M LAB REF 16:26 | PROVIDERS: ATTEND Internal Medicine Pulmonary Disease | DX: J47.9 Bronchiectasis, uncomplicated (principal) ==

== ENCOUNTER → 2021-05-29 | Outpatient (REF) | payer MEDICARE | LOC: M LAB REF 13:24 | PROVIDERS: ATTEND Internal Medicine Nephrology | DX: N18.31 Chronic kidney disease, stage 3a (principal) ==

== ENCOUNTER → 2021-06-07 | Outpatient (CLI) | payer MEDICARE | LOC: M RAD 11:09 | PROVIDERS: ATTEND Internal Medicine Nephrology | DX: N28.1 Cyst of kidney, acquired (principal); I15.0 Renovascular hypertension; R31.29 Other microscopic hematuria ==

== ENCOUNTER → 2021-09-05 | Outpatient (CLI) | payer MEDICARE | LOC: M RAD 12:05 | PROVIDERS: ATTEND Internal Medicine Pulmonary Disease | DX: J47.9 Bronchiectasis, uncomplicated (principal) ==

== ENCOUNTER → 2021-09-05 | Outpatient (CLI) | payer MEDICARE ==
[2021-09-05 13:13] LABS: HEMATOCRIT 39.4 % (36.0-47.0); HEMOGLOBIN 13.1 g/dl (12.0-15.5); MEAN CORPUSCULAR HEMOGLOBIN 34.7 pg (27.0-33.0); MEAN CORPUSCULAR HGB CONC 33.2 g/dl (32.0-36.5); MEAN CORPUSCULAR VOLUME 104.2 fl (80.0-96.0); PLATELET COUNT, AUTOMATED 172 10^3/uL (150-450); RED BLOOD COUNT 3.78 10^6/uL (4.00-5.40)
[2021-09-05 13:35] LABS: CALCIUM LEVEL 9.1 MG/DL (8.8-10.2); CREATININE FOR GFR 1.01 MG/DL (0.55-1.30); GLOMERULAR FILTRATION RATE 57.7 (>39); MAGNESIUM LEVEL 2.1 MG/DL (1.8-2.4); POTASSIUM SERUM 4.5 MEQ/L (3.5-5.1)
== END ==
LOC: M LAB 12:03
PROVIDERS: ATTEND Physician Assistant
DX: I48.21 Permanent atrial fibrillation (principal); I11.9 Hypertensive heart disease without heart failure

== ENCOUNTER → 2021-09-05 | Outpatient (CLI) | payer MEDICARE ==
[2021-09-05 13:48] LABS: INR 2.47; PROTHROMBIN TIME 27.1 SECONDS (12.7-14.5)
== END ==
LOC: M LAB 12:00
PROVIDERS: ATTEND Family Medicine
DX: Z79.01 Long term (current) use of anticoagulants (principal)

== ENCOUNTER → 2021-09-20 | Outpatient (CLI) | payer MEDICARE | LOC: M PLAIMG 13:53 | PROVIDERS: ATTEND Nurse Practitioner Adult Health | DX: R91.8 Other nonspecific abnormal finding of lung field (principal); Z87.891 Personal history of nicotine dependence ==

== ENCOUNTER 2021-10-08 00:04 | Inpatient (IN) | payer MEDICARE ==
[2021-10-08] VITALS (29 sets, daily range): BP systolic 113–180; BP diastolic 56–88
[~2021-10-08] VITALS: Ht 180.3 cm; Wt 63.0 kg
[2021-10-08] MEDS ORDERED: DEXTROSE 50% 50 ML SYRINGE IV PRN (00:20)
[2021-10-08] MEDS ORDERED: GLUCAGON INJ 1MG VIAL SC PRN (00:20)
[2021-10-08] MEDS ORDERED: GLUCOSE 4GM CHEW TABLET PO PRN (00:20)
[2021-10-08] MEDS ORDERED: ACETAMINOPHEN TAB 650MG DOSE (2X325MG) PO PRN (00:20)
[2021-10-08 01:51] LABS: MEAN CORPUSCULAR HEMOGLOBIN 34.6 pg (27.0-33.0); MEAN CORPUSCULAR HGB CONC 33.7 g/dl (32.0-36.5); MEAN CORPUSCULAR VOLUME 102.8 fl (80.0-96.0); PLATELET COUNT, AUTOMATED 272 10^3/uL (150-450); RED BLOOD COUNT 1.79 10^6/uL (4.00-5.40); WHITE BLOOD COUNT 7.2 10^3/uL (4.0-10.0)
[2021-10-08 01:54] LABS: HEMATOCRIT 18.4 % (36.0-47.0); HEMOGLOBIN 6.2 g/dl (12.0-15.5)
[2021-10-08] MEDS ORDERED: IRBE150T7 PO (02:07)
[2021-10-08] MEDS ORDERED: HOME MED LIST COMPLETE! XX SCH (02:10)
[2021-10-08 02:33] LABS: ALBUMIN 2.6 GM/DL (3.2-5.2); ALT/SGPT 21 U/L (12-78); BILIRUBIN,TOTAL 0.4 MG/DL (0.2-1.0); BLOOD UREA NITROGEN 30 MG/DL (7-18); CALCIUM LEVEL 7.9 MG/DL (8.8-10.2); CARBON DIOXIDE LEVEL 27 MEQ/L (21-32); CHLORIDE LEVEL 110 MEQ/L (98-107); CREATININE FOR GFR 0.71 MG/DL (0.55-1.30); GLOMERULAR FILTRATION RATE > 60.0 (>39); GLUCOSE, FASTING 130 MG/DL (70-100); MAGNESIUM LEVEL 1.6 MG/DL (1.8-2.4); POTASSIUM SERUM 4.1 MEQ/L (3.5-5.1); SODIUM LEVEL 142 MEQ/L (136-145); TOTAL PROTEIN 5.5 GM/DL (6.4-8.2)
[2021-10-08 02:43] LABS: PROTHROMBIN TIME 64.4 SECONDS (12.7-14.5)
[2021-10-08 02:45] LABS: INR 7.67
[2021-10-08] MEDS: PANTOPRAZOLE 40MG VIAL IV SCH ×2 (02:50→13:55)
[2021-10-08 05:08] LABS: MEAN CORPUSCULAR HGB CONC 33.7 g/dl (32.0-36.5); PLATELET COUNT, AUTOMATED 245 10^3/uL (150-450); RED BLOOD COUNT 2.06 10^6/uL (4.00-5.40); WHITE BLOOD COUNT 7.1 10^3/uL (4.0-10.0)
[2021-10-08 05:13] LABS: HEMATOCRIT 20.8 % (36.0-47.0)
[2021-10-08 05:49] LABS: BLOOD UREA NITROGEN 29 MG/DL (7-18); CALCIUM LEVEL 7.8 MG/DL (8.8-10.2); CARBON DIOXIDE LEVEL 28 MEQ/L (21-32); CHLORIDE LEVEL 112 MEQ/L (98-107); CREATININE FOR GFR 0.65 MG/DL (0.55-1.30); GLOMERULAR FILTRATION RATE > 60.0 (>39); GLUCOSE, FASTING 128 MG/DL (70-100); MAGNESIUM LEVEL 1.6 MG/DL (1.8-2.4); POTASSIUM SERUM 4.2 MEQ/L (3.5-5.1); SODIUM LEVEL 143 MEQ/L (136-145)
[2021-10-08] MEDS: HumaLOG INSULIN (NovoLOG) PER UNIT SC SCH ×3 (05:52→18:00)
[2021-10-08] MEDS ORDERED: SUCRALFATE 1 GM TAB PO SCH (06:00)
[2021-10-08] MEDS: CARVedilol 12.5 MG TAB PO SCH ×2 (08:47→21:10)
[2021-10-08] MEDS: DIGOXIN 0.25 MG TAB PO SCH (08:48)
[2021-10-08] MEDS: MAG SULF 1GM/100ML (MAG RUN) 1 GM in IV 1 EA IV SCH ×2 (09:46→10:41)
[2021-10-08 10:19] LABS: HEMATOCRIT 25.6 % (36.0-47.0); HEMOGLOBIN 8.8 g/dl (12.0-15.5)
[2021-10-08 10:29] LABS: INR 3.88; PARTIAL THROMBOPLASTIN TIME 41.4 SECONDS (25.9-37.0); PROTHROMBIN TIME 38.3 SECONDS (12.7-14.5)
[2021-10-08] MEDS: SUCRALFATE 1 GM TAB PO SCH ×3 (11:17→23:52)
[2021-10-08] MEDS: SODIUM CHLORIDE HYPERTONIC 3% 15ML NEB SOL INH SCH ×2 (13:27→20:00)
[2021-10-08] MEDS: ALBUTEROL SULFATE 2.5 MG/0.5 ML INH NEB SOLN NEB SCH ×2 (13:27→20:00)
[2021-10-08 14:30] LABS: HEMATOCRIT 23.8 % (36.0-47.0); HEMOGLOBIN 8.1 g/dl (12.0-15.5)
[2021-10-08 22:40] LABS: HEMATOCRIT 26.3 % (36.0-47.0); HEMOGLOBIN 9.1 g/dl (12.0-15.5); MEAN CORPUSCULAR HGB CONC 34.6 g/dl (32.0-36.5); MEAN CORPUSCULAR VOLUME 95.3 fl (80.0-96.0); PLATELET COUNT, AUTOMATED 242 10^3/uL (150-450); RED BLOOD COUNT 2.76 10^6/uL (4.00-5.40); WHITE BLOOD COUNT 6.8 10^3/uL (4.0-10.0)
[2021-10-08 22:56] LABS: INR 2.01; PARTIAL THROMBOPLASTIN TIME 34.6 SECONDS (25.9-37.0); PROTHROMBIN TIME 23.2 SECONDS (12.7-14.5)
[2021-10-09] MEDS: PANTOPRAZOLE 40MG VIAL IV SCH (01:00)
[2021-10-09] MEDS: ALBUTEROL SULFATE 2.5 MG/0.5 ML INH NEB SOLN NEB SCH ×2 (02:00→07:23)
[2021-10-09] MEDS: SODIUM CHLORIDE HYPERTONIC 3% 15ML NEB SOL INH SCH ×2 (02:00→07:23)
[2021-10-09 04:50] VITALS: BP 135/65
[2021-10-09] MEDS: SUCRALFATE 1 GM TAB PO SCH ×2 (05:06→12:00)
[2021-10-09] MEDS: HumaLOG INSULIN (NovoLOG) PER UNIT SC SCH ×3 (05:12→12:00)
[2021-10-09 05:33] LABS: BASO # 0.1 10^3/uL (0.0-0.2); BASO % 0.6 % (0.0-1.0); EOS % 0.5 % (0.0-3.0); HEMATOCRIT 26.3 % (36.0-47.0); LYMPH # 2.9 10^3/uL (1.5-5.0); LYMPH % 36.9 % (24.0-44.0); MEAN CORPUSCULAR HEMOGLOBIN 32.6 pg (27.0-33.0); MEAN CORPUSCULAR HGB CONC 34.2 g/dl (32.0-36.5); MEAN CORPUSCULAR VOLUME 95.3 fl (80.0-96.0); MONO # 0.5 10^3/uL (0.0-0.8); MONO % 6.8 % (2.0-8.0); NEUTROPHILS # 4.3 10^3/uL (1.5-8.5); NEUTROPHILS % 54.6 % (36.0-66.0); PLATELET COUNT, AUTOMATED 247 10^3/uL (150-450); RED BLOOD COUNT 2.76 10^6/uL (4.00-5.40); WHITE BLOOD COUNT 7.9 10^3/uL (4.0-10.0)
[2021-10-09 06:01] LABS: BLOOD UREA NITROGEN 22 MG/DL (7-18); CALCIUM LEVEL 7.8 MG/DL (8.8-10.2); CARBON DIOXIDE LEVEL 26 MEQ/L (21-32); CHLORIDE LEVEL 111 MEQ/L (98-107); CREATININE FOR GFR 0.72 MG/DL (0.55-1.30); GLOMERULAR FILTRATION RATE > 60.0 (>39); GLUCOSE, FASTING 108 MG/DL (70-100); POTASSIUM SERUM 3.7 MEQ/L (3.5-5.1); SODIUM LEVEL 142 MEQ/L (136-145)
[2021-10-09 07:30] VITALS: BP_SYST 154; BP_SYST 179; BP_DIAS 67; BP_DIAS 74
[2021-10-09 08:02] VITALS: BP 154/67
[2021-10-09] MEDS: CARVedilol 12.5 MG TAB PO SCH (08:02)
[2021-10-09] MEDS: DIGOXIN 0.25 MG TAB PO SCH (08:03)
[2021-10-09] MEDS ORDERED: PANT40TA29 PO (09:43)
[2021-10-09] MEDS ORDERED: SUCR1TA PO (09:43)
== END 2021-10-09 12:45 | disposition home or self-care (01) | DRG 813 ==
LOC: M ICU 01:16
PROVIDERS: ADMIT Family Medicine; ATTEND Internal Medicine Nephrology
PROC: 30233N1 Transfusion of Nonautologous Red Blood Cells into Peripheral Vein, Percutaneous Approach (ICD-10-PCS; principal; 2021-10-08)
DX: D68.32 Hemorrhagic disorder due to extrinsic circulating anticoagulants (principal); D62 Acute posthemorrhagic anemia; K92.2 Gastrointestinal hemorrhage, unspecified; I48.91 Unspecified atrial fibrillation; E11.9 Type 2 diabetes mellitus without complications; I10 Essential (primary) hypertension; F17.200 Nicotine dependence, unspecified, uncomplicated; R91.8 Other nonspecific abnormal finding of lung field; Z91.14 Patient's other noncompliance with medication regimen; Z79.82 Long term (current) use of aspirin; Z79.01 Long term (current) use of anticoagulants; Z79.899 Other long term (current) drug therapy; Z88.2 Allergy status to sulfonamides; Z88.5 Allergy status to narcotic agent; J47.9 Bronchiectasis, uncomplicated; Z85.3 Personal history of malignant neoplasm of breast; Z96.0 Presence of urogenital implants; Z86.73 Personal history of transient ischemic attack (TIA), and cerebral infarction without residual deficits

== ENCOUNTER → 2021-10-17 | Outpatient (CLI) | payer MEDICARE ==
[~2021-10-17] MED LIST changes: +PANT40TA29 PO; +SUCR1TA PO
[2021-10-17 16:15] LABS: BASO # 0.1 10^3/uL (0.0-0.2); BASO % 0.8 % (0.0-1.0); EOS # 0.1 10^3/uL (0.0-0.5); EOS % 1.5 % (0.0-3.0); HEMATOCRIT 31.6 % (36.0-47.0); HEMOGLOBIN 10.2 g/dl (12.0-15.5); LYMPH # 2.2 10^3/uL (1.5-5.0); LYMPH % 31.5 % (24.0-44.0); MEAN CORPUSCULAR HEMOGLOBIN 33.6 pg (27.0-33.0); MEAN CORPUSCULAR HGB CONC 32.3 g/dl (32.0-36.5); MEAN CORPUSCULAR VOLUME 103.9 fl (80.0-96.0); MONO # 0.7 10^3/uL (0.0-0.8); MONO % 9.3 % (2.0-8.0); NEUTROPHILS % 56.6 % (36.0-66.0); PLATELET COUNT, AUTOMATED 213 10^3/uL (150-450); RED BLOOD COUNT 3.04 10^6/uL (4.00-5.40); WHITE BLOOD COUNT 7.1 10^3/uL (4.0-10.0)
== END ==
LOC: M WUC 13:14
PROVIDERS: ATTEND Family Medicine
DX: D64.9 Anemia, unspecified (principal)

== ENCOUNTER → 2021-12-28 | Outpatient (CLI) | payer MEDICARE | LOC: M PLAIMG 11:00 | PROVIDERS: ATTEND Nurse Practitioner Family | DX: J47.9 Bronchiectasis, uncomplicated (principal); I70.0 Atherosclerosis of aorta; I25.10 Atherosclerotic heart disease of native coronary artery without angina pectoris; I51.7 Cardiomegaly; M85.88 Other specified disorders of bone density and structure, other site ==

== ENCOUNTER → 2022-01-09 | Outpatient (CLI) | payer MEDICARE | LOC: M RAD 12:55 | PROVIDERS: ATTEND Surgery Vascular Surgery | DX: I65.23 Occlusion and stenosis of bilateral carotid arteries (principal) ==

== ENCOUNTER → 2022-01-14 | Outpatient (CLI) | payer MEDICARE | LOC: M LABSMTC 09:55 | PROVIDERS: ATTEND Anesthesiology | DX: Z11.52 Encounter for screening for COVID-19 (principal); Z20.822 Contact with and (suspected) exposure to COVID-19 ==

== ENCOUNTER → 2022-01-15 | Outpatient (CLI) | payer MEDICARE ==
[2022-01-15 15:17] LABS: BASO # 0.1 10^3/uL (0.0-0.2); BASO % 0.8 % (0.0-1.0); EOS # 0.2 10^3/uL (0.0-0.5); EOS % 2.6 % (0.0-3.0); HEMATOCRIT 33.7 % (36.0-47.0); HEMOGLOBIN 10.4 g/dl (12.0-15.5); LYMPH % 33.2 % (24.0-44.0); MEAN CORPUSCULAR HEMOGLOBIN 31.5 pg (27.0-33.0); MEAN CORPUSCULAR HGB CONC 30.9 g/dl (32.0-36.5); MEAN CORPUSCULAR VOLUME 102.1 fl (80.0-96.0); MONO # 0.6 10^3/uL (0.0-0.8); MONO % 10.3 % (2.0-8.0); NEUTROPHILS # 3.2 10^3/uL (1.5-8.5); NEUTROPHILS % 52.8 % (36.0-66.0); PLATELET COUNT, AUTOMATED 176 10^3/uL (150-450); WHITE BLOOD COUNT 6.1 10^3/uL (4.0-10.0)
[2022-01-15 18:57] LABS: PERCENT SATURATION 9.4 % (13.2-45.0)
== END ==
LOC: M LAB 14:46
PROVIDERS: ATTEND Internal Medicine Gastroenterology
DX: D62 Acute posthemorrhagic anemia (principal)

== ENCOUNTER 2022-01-19 07:36 | Day surgery (SDC) | payer MEDICARE ==
[~2022-01-19] VITALS: Ht 179.1 cm; Wt 61.6 kg
[~2022-01-19 07:36] MED LIST changes: +NS 1,000 ML IV ONE; +fentaNYL 100 MCG/2 ML INJECTION As Ordered ONE; +propofoL 500 MG/50 ML VIAL As Ordered ONE
[2022-01-19] MEDS ORDERED: LIDOCAINE 2% INJ 100 MG/5 ML SYRINGE As Ordered ONE (09:38)
[2022-01-19 10:29] VITALS: BP 179/83
== END 2022-01-19 10:42 | disposition home or self-care (01) ==
LOC: M OPP 07:36
PROVIDERS: ATTEND Internal Medicine Gastroenterology
DX: K57.30 Diverticulosis of large intestine without perforation or abscess without bleeding (principal); K63.5 Polyp of colon; K62.6 Ulcer of anus and rectum; D50.9 Iron deficiency anemia, unspecified; D62 Acute posthemorrhagic anemia; E11.9 Type 2 diabetes mellitus without complications; I10 Essential (primary) hypertension; I48.91 Unspecified atrial fibrillation; Z79.01 Long term (current) use of anticoagulants; Z79.02 Long term (current) use of antithrombotics/antiplatelets; Z79.51 Long term (current) use of inhaled steroids; Z79.82 Long term (current) use of aspirin; Z79.899 Other long term (current) drug therapy; Z88.2 Allergy status to sulfonamides; Z88.5 Allergy status to narcotic agent; Z91.013 Allergy to seafood; Z86.73 Personal history of transient ischemic attack (TIA), and cerebral infarction without residual deficits; Z85.3 Personal history of malignant neoplasm of breast; Z92.3 Personal history of irradiation; Z92.21 Personal history of antineoplastic chemotherapy
CPT/HCPCS: 43239; 45380; 45385; 88305; J3010

== ENCOUNTER → 2022-02-27 | Outpatient (CLI) | payer MEDICARE ==
[~2022-02-27] MED LIST changes: -NS 1,000 ML IV ONE; -fentaNYL 100 MCG/2 ML INJECTION As Ordered ONE; -propofoL 500 MG/50 ML VIAL As Ordered ONE
[2022-02-27 17:56] LABS: BASO # 0.1 10^3/uL (0.0-0.2); BASO % 0.9 % (0.0-1.0); EOS # 0.3 10^3/uL (0.0-0.5); EOS % 4.7 % (0.0-3.0); HEMATOCRIT 36.7 % (36.0-47.0); HEMOGLOBIN 11.4 g/dl (12.0-15.5); LYMPH % 30.2 % (24.0-44.0); MEAN CORPUSCULAR HEMOGLOBIN 31.6 pg (27.0-33.0); MEAN CORPUSCULAR HGB CONC 31.1 g/dl (32.0-36.5); MEAN CORPUSCULAR VOLUME 101.7 fl (80.0-96.0); MONO # 0.6 10^3/uL (0.0-0.8); MONO % 8.9 % (2.0-8.0); NEUTROPHILS # 3.6 10^3/uL (1.5-8.5); PLATELET COUNT, AUTOMATED 187 10^3/uL (150-450); RED BLOOD COUNT 3.61 10^6/uL (4.00-5.40); WHITE BLOOD COUNT 6.6 10^3/uL (4.0-10.0)
[2022-02-27 18:23] LABS: HEMOGLOBIN A1c 6.5 %
[2022-02-27 18:25] LABS: ALBUMIN 3.6 GM/DL (3.2-5.2); ALT/SGPT 18 U/L (12-78); BILIRUBIN,TOTAL 0.6 MG/DL (0.2-1.0); BLOOD UREA NITROGEN 17 MG/DL (7-18); CALCIUM LEVEL 9.2 MG/DL (8.8-10.2); CARBON DIOXIDE LEVEL 31 MEQ/L (21-32); CHLORIDE LEVEL 104 MEQ/L (98-107); CREATININE FOR GFR 0.95 MG/DL (0.55-1.30); GLOMERULAR FILTRATION RATE > 60.0 (>39); GLUCOSE, FASTING 80 MG/DL (70-100); POTASSIUM SERUM 3.9 MEQ/L (3.5-5.1); SODIUM LEVEL 137 MEQ/L (136-145); TOTAL PROTEIN 7.2 GM/DL (6.4-8.2)
== END ==
LOC: M LAB 16:19
PROVIDERS: ATTEND Family Medicine
DX: E11.9 Type 2 diabetes mellitus without complications (principal)

== ENCOUNTER → 2022-04-17 | Outpatient (CLI) | payer MEDICARE ==
[2022-04-17 15:00] LABS: BASO # 0.1 10^3/uL (0.0-0.2); BASO % 0.9 % (0.0-1.0); EOS # 0.2 10^3/uL (0.0-0.5); EOS % 3.7 % (0.0-3.0); HEMATOCRIT 26.4 % (36.0-47.0); HEMOGLOBIN 8.3 g/dl (12.0-15.5); LYMPH % 30.7 % (24.0-44.0); MEAN CORPUSCULAR HEMOGLOBIN 31.7 pg (27.0-33.0); MEAN CORPUSCULAR HGB CONC 31.4 g/dl (32.0-36.5); MEAN CORPUSCULAR VOLUME 100.8 fl (80.0-96.0); MONO # 0.5 10^3/uL (0.0-0.8); NEUTROPHILS # 3.7 10^3/uL (1.5-8.5); NEUTROPHILS % 56.4 % (36.0-66.0); PLATELET COUNT, AUTOMATED 203 10^3/uL (150-450); RED BLOOD COUNT 2.62 10^6/uL (4.00-5.40); WHITE BLOOD COUNT 6.5 10^3/uL (4.0-10.0)
[2022-04-17 15:38] LABS: PERCENT SATURATION 7.1 % (13.2-45.0)
== END ==
LOC: M LAB 14:03
PROVIDERS: ATTEND Family Medicine
DX: D64.9 Anemia, unspecified (principal)

== ENCOUNTER 2022-04-26 18:59 | Emergency (ER) | payer MEDICARE ==
[~2022-04-26] VITALS: Ht 177.8 cm; Wt 60.0 kg
[~2022-04-26 18:59] MED LIST changes: -LASI40TA9 PO; -SPIR-10 PO; -WARF-60 PO
[2022-04-26] MEDS ORDERED: NITROGLYCERIN 2% OINT 1 GM *U/D* PKT TOP ONE (19:25)
[2022-04-26] MEDS ORDERED: LASI40TA9 PO (19:26)
[2022-04-26] MEDS ORDERED: WARF-60 PO (19:31)
[2022-04-26] MEDS ORDERED: SPIR-10 PO (19:31)
[2022-04-26 19:57] LABS: BASO % 0.6 % (0.0-1.0); EOS # 0.2 10^3/uL (0.0-0.5); EOS % 2.6 % (0.0-3.0); HEMATOCRIT 25.7 % (36.0-47.0); HEMOGLOBIN 8.3 g/dl (12.0-15.5); LYMPH # 1.6 10^3/uL (1.5-5.0); LYMPH % 22.6 % (24.0-44.0); MEAN CORPUSCULAR HEMOGLOBIN 32.3 pg (27.0-33.0); MEAN CORPUSCULAR HGB CONC 32.3 g/dl (32.0-36.5); MONO # 0.6 10^3/uL (0.0-0.8); MONO % 8.8 % (2.0-8.0); NEUTROPHILS # 4.7 10^3/uL (1.5-8.5); PLATELET COUNT, AUTOMATED 210 10^3/uL (150-450); RED BLOOD COUNT 2.57 10^6/uL (4.00-5.40); WHITE BLOOD COUNT 7.2 10^3/uL (4.0-10.0)
[2022-04-26 20:13] LABS: INR 2.83; PROTHROMBIN TIME 30.2 SECONDS (12.5-14.5)
[2022-04-26 20:13] LABS: CK-MB VALUE MASS 1.2 NG/ML (<3.6); MB/CK RELATIVE INDEX 1.97 (< OR =4)
[2022-04-26 20:14] LABS: PARTIAL THROMBOPLASTIN TIME 37.8 SECONDS (24.8-34.2)
[2022-04-26 20:17] LABS: RSV AMPLIFICATION NEGATIVE (NEGATIVE)
[2022-04-26 20:23] LABS: ALBUMIN 3.6 GM/DL (3.2-5.2); BILIRUBIN,DIRECT 0.1 MG/DL (0.0-0.2); BILIRUBIN,TOTAL 0.6 MG/DL (0.2-1.0); C REACTIVE PROTEIN QUANTITATIV 0.3 MG/DL (0.00-0.30); CALCIUM LEVEL 8.7 MG/DL (8.8-10.2); CREATININE FOR GFR 1.19 MG/DL (0.55-1.30); GLOMERULAR FILTRATION RATE 47.6 (>39); POTASSIUM SERUM 4.6 MEQ/L (3.5-5.1); THYROID STIMULATING HORMONE 0.674 uIU/ML (0.358-3.740); TOTAL PROTEIN 7.4 GM/DL (6.4-8.2)
[2022-04-26 20:25] LABS: ERYTHROCYTE SEDIMENTATION RATE 65 mm/hr (0-30)
[2022-04-26] MEDS ORDERED: ISOVUE-370 76% 100ML VIAL As Ordered ONE (20:43)
[2022-04-26 21:01] LABS: CK-MB VALUE MASS 1.3 NG/ML (<3.6); MB/CK RELATIVE INDEX 1.76 (< OR =4)
[2022-04-26] MEDS ORDERED: diazePAM 2 MG TAB PO ONE (21:50)
[2022-04-26] MEDS ORDERED: IRBESARTAN 150MG TAB PO ONE (21:50)
[2022-04-26] MEDS ORDERED: MECLIZINE 25 MG TABLET PO ONE ×2 (22:00→23:00)
[2022-04-26] MEDS ORDERED: ONDANSETRON 4MG 2ML VIAL IV ONE (22:55)
[2022-04-26] MEDS ORDERED: ALPRAZolam 0.5 MG TAB PO ONE (23:20)
[2022-04-26 23:25] VITALS: BP 215/91
[2022-04-26] MEDS ORDERED: CARVedilol 12.5 MG TAB PO ONE (23:25)
[2022-04-27 00:45] VITALS: BP 152/72
[2022-04-27] MEDS ORDERED: MECL1TAB31 PO (01:01)
== END 2022-04-27 01:23 | disposition home or self-care (01) ==
LOC: M ED 18:59
DX: R07.89 Other chest pain (principal); R42 Dizziness and giddiness; E11.9 Type 2 diabetes mellitus without complications; I48.91 Unspecified atrial fibrillation; I10 Essential (primary) hypertension; Z86.73 Personal history of transient ischemic attack (TIA), and cerebral infarction without residual deficits; Z85.3 Personal history of malignant neoplasm of breast; F17.200 Nicotine dependence, unspecified, uncomplicated; I65.23 Occlusion and stenosis of bilateral carotid arteries; Z79.82 Long term (current) use of aspirin; Z79.01 Long term (current) use of anticoagulants; Z79.899 Other long term (current) drug therapy; Z88.2 Allergy status to sulfonamides; Z88.5 Allergy status to narcotic agent
CPT/HCPCS: 70450; 70496; 70498; 71045; 71250; 80047; 80048; 80076; 82550; 82553; 83690; 83880; 84443; 84484; 85025; 85610; 85652; 85730; 86140; 86850; 86900; 86901; 87631; 93005; 93041; 94760; 96374; 99291; J2405; Q9967

== ENCOUNTER → 2022-04-26 | Outpatient (CLI) | payer MEDICARE ==
[~2022-04-26] MED LIST changes: +LASI40TA9 PO; +SPIR-10 PO; +WARF-60 PO
[2022-04-26 13:33] LABS: BASO % 0.5 % (0.0-1.0); EOS # 0.2 10^3/uL (0.0-0.5); EOS % 2.5 % (0.0-3.0); HEMATOCRIT 28.5 % (36.0-47.0); HEMOGLOBIN 8.9 g/dl (12.0-15.5); LYMPH # 1.8 10^3/uL (1.5-5.0); LYMPH % 21.9 % (24.0-44.0); MEAN CORPUSCULAR HEMOGLOBIN 32.2 pg (27.0-33.0); MEAN CORPUSCULAR HGB CONC 31.2 g/dl (32.0-36.5); MEAN CORPUSCULAR VOLUME 103.3 fl (80.0-96.0); MONO # 0.7 10^3/uL (0.0-0.8); MONO % 8.3 % (2.0-8.0); NEUTROPHILS # 5.3 10^3/uL (1.5-8.5); NEUTROPHILS % 66.5 % (36.0-66.0); PLATELET COUNT, AUTOMATED 224 10^3/uL (150-450); RED BLOOD COUNT 2.76 10^6/uL (4.00-5.40)
== END ==
LOC: M LAB 12:12
PROVIDERS: ATTEND Family Medicine
DX: D64.9 Anemia, unspecified (principal)

== ENCOUNTER → 2022-05-04 | Outpatient (CLI) | payer MEDICARE ==
[~2022-05-04] MED LIST changes: +LASI40TA9 PO; +SPIR-10 PO; +WARF-60 PO
[2022-05-04 15:49] LABS: HEMATOCRIT 31.2 % (36.0-47.0); HEMOGLOBIN 9.6 g/dl (12.0-15.5); MEAN CORPUSCULAR HEMOGLOBIN 31.9 pg (27.0-33.0); MEAN CORPUSCULAR HGB CONC 30.8 g/dl (32.0-36.5); MEAN CORPUSCULAR VOLUME 103.7 fl (80.0-96.0); PLATELET COUNT, AUTOMATED 261 10^3/uL (150-450); RED BLOOD COUNT 3.01 10^6/uL (4.00-5.40); WHITE BLOOD COUNT 8.4 10^3/uL (4.0-10.0)
[2022-05-04 16:40] LABS: CALCIUM LEVEL 9.3 MG/DL (8.8-10.2); CREATININE FOR GFR 1.05 MG/DL (0.55-1.30); MAGNESIUM LEVEL 1.9 MG/DL (1.8-2.4); POTASSIUM SERUM 4.3 MEQ/L (3.5-5.1)
== END ==
LOC: M LAB 14:17
PROVIDERS: ATTEND Internal Medicine Cardiovascular Disease
DX: I50.9 Heart failure, unspecified (principal); I48.21 Permanent atrial fibrillation; Z79.01 Long term (current) use of anticoagulants

== ENCOUNTER → 2022-05-29 | Outpatient (REF) | payer MEDICARE | LOC: M LAB REF 17:18 | PROVIDERS: ATTEND Nurse Practitioner Family | DX: N39.0 Urinary tract infection, site not specified (principal) ==

== ENCOUNTER → 2022-06-11 | Outpatient (CLI) | payer MEDICARE | LOC: M RAD 07:45 | PROVIDERS: ATTEND Nurse Practitioner Family | DX: I70.1 Atherosclerosis of renal artery (principal); N28.1 Cyst of kidney, acquired ==

== ENCOUNTER → 2022-07-10 | Outpatient (CLI) | payer MEDICARE ==
[~2022-07-10] MED LIST changes: +ISOVUE-370 76% 100ML VIAL As Ordered ONE
== END ==
LOC: M RAD 13:07
PROVIDERS: ATTEND Nurse Practitioner Family
DX: I70.1 Atherosclerosis of renal artery (principal)
CPT/HCPCS: 74175; Q9967

== ENCOUNTER → 2022-07-13 | Outpatient (REF) | payer MEDICARE ==
[~2022-07-13] MED LIST changes: -ISOVUE-370 76% 100ML VIAL As Ordered ONE
[2022-07-13 18:10] LABS: APPEARANCE, URINE MANUAL CLOUDY (CLEAR); COLOR, URINE MANUAL YELLOW (YELLOW)
[2022-07-13 18:12] LABS: BILIRUBIN, URINE MANUAL NEGATIVE (NEGATIVE); BLOOD URINE MANUAL POSITIVE (NEGATIVE); GLUCOSE, URINE (UA) MANUAL NEGATIVE (NEGATIVE); KETONE, URINE MANUAL NEGATIVE (NEGATIVE); LEUKOCYTE ESTERASE, URINE MAN POSITIVE (NEGATIVE); NITRITE, URINE MANUAL POSITIVE (NEGATIVE); PH,URINE MAN 5.5 UNITS (5.0 - 7.0); PROTEIN, URINE MANUAL 2+ mg/dL (NEGATIVE); UROBILINOGEN, URINE MANUAL NORMAL (NORMAL)
[2022-07-13 19:56] LABS: BACTERIA, URINE LARGE AMOUNT; RBC, URINE 0-1 /hpf (0-3); SQUAMOUS EPITHELIAL CELL URINE SMALL AMOUNT /hpf (SMALL AMT); TRANSITIONAL EPI CELLS, URINE SMALL AMOUNT /hpf; WBC, URINE TNTC /hpf (0-3)
[2022-07-13 19:57] LABS: HYALINE CAST, URINE NONE SEEN /lpf (0-1)
== END ==
LOC: M LAB REF 16:48
PROVIDERS: ATTEND Nurse Practitioner Family
DX: N39.0 Urinary tract infection, site not specified (principal)

== ENCOUNTER → 2022-08-06 | Outpatient (CLI) | payer MEDICARE ==
[2022-08-06 15:18] LABS: CREATININE FOR GFR 1.02 MG/DL (0.55-1.30); GLOMERULAR FILTRATION RATE 56.9 (>39)
== END ==
LOC: M LAB 12:32
PROVIDERS: ATTEND Physician Assistant
DX: I50.32 Chronic diastolic (congestive) heart failure (principal)

== ENCOUNTER → 2022-08-23 | Outpatient (REF) | payer MEDICARE | LOC: M LAB REF 16:54 | PROVIDERS: ATTEND Nurse Practitioner Family | DX: N39.0 Urinary tract infection, site not specified (principal) ==

== ENCOUNTER → 2022-11-12 | Outpatient (CLI) | payer MEDICARE ==
[2022-11-12 17:18] LABS: CREATININE FOR GFR 1.17 MG/DL (0.55-1.30); GLOMERULAR FILTRATION RATE 48.5 (>39); POTASSIUM SERUM 3.8 MMOL/L (3.5-5.1)
== END ==
LOC: M LAB 14:56
PROVIDERS: ATTEND Physician Assistant
DX: I50.32 Chronic diastolic (congestive) heart failure (principal)

== ENCOUNTER → 2022-12-25 | Outpatient (REF) | payer MEDICARE ==
[~2022-12-25] MED LIST changes: -ROSU20TA5 PO; +ROSU20TA61 PO
[2022-12-25 17:45] LABS: APPEARANCE, URINE CLEAR (CLEAR); BACTERIA, URINE AUTO NEGATIVE (NEGATIVE); BILIRUBIN, URINE AUTO NEGATIVE (NEGATIVE); BLOOD, URINE BLOOD 2+ (NEGATIVE); COLOR, URINE YELLOW (YELLOW); GLUCOSE, URINE (UA) AUTO NEGATIVE (NEGATIVE); KETONE, URINE AUTO NEGATIVE (NEGATIVE); LEUKOCYTE ESTERASE, URINE AUTO NEGATIVE (NEGATIVE); NITRITE, URINE AUTO NEGATIVE (NEGATIVE); PROTEIN, URINE AUTO NEGATIVE (NEGATIVE); RBC, URINE AUTO 0 /HPF (0-3); SPECIFIC GRAVITY URINE AUTO 1.013 (1.002-1.035); SQUAMOUS EPITHELIAL CELL UR AU 4 /HPF (0-6); WBC, URINE AUTO 1 /HPF (0-3)
== END ==
LOC: M LAB REF 16:48
PROVIDERS: ATTEND Nurse Practitioner Family
DX: N39.0 Urinary tract infection, site not specified (principal)

== ENCOUNTER → 2023-01-02 | Outpatient (REF) | payer MEDICARE ==
[2023-01-02 18:12] LABS: APPEARANCE, URINE CLEAR (CLEAR); BACTERIA, URINE AUTO NEGATIVE (NEGATIVE); BILIRUBIN, URINE AUTO NEGATIVE (NEGATIVE); BLOOD, URINE BLOOD NEGATIVE (NEGATIVE); COLOR, URINE YELLOW (YELLOW); GLUCOSE, URINE (UA) AUTO NEGATIVE (NEGATIVE); KETONE, URINE AUTO NEGATIVE (NEGATIVE); LEUKOCYTE ESTERASE, URINE AUTO NEGATIVE (NEGATIVE); NITRITE, URINE AUTO NEGATIVE (NEGATIVE); PROTEIN, URINE AUTO NEGATIVE (NEGATIVE); RBC, URINE AUTO 0 /HPF (0-3); SQUAMOUS EPITHELIAL CELL UR AU 2 /HPF (0-6); UROBILINOGEN, URINE AUTO 0.2 mg/dL (0.0-2.0); WBC, URINE AUTO 1 /HPF (0-3)
== END ==
LOC: M LAB REF 17:18
PROVIDERS: ATTEND Nurse Practitioner Family
DX: N39.0 Urinary tract infection, site not specified (principal)

== ENCOUNTER → 2023-01-04 | Outpatient (CLI) | payer MEDICARE | LOC: M WHC 10:27 | PROVIDERS: ATTEND Nurse Practitioner Family | DX: R33.9 Retention of urine, unspecified (principal); Z87.440 Personal history of urinary (tract) infections ==

== ENCOUNTER → 2023-03-04 | Outpatient (CLI) | payer MEDICARE ==
[2023-03-04 12:27] LABS: HEMATOCRIT 39.9 % (36.0-47.0); HEMOGLOBIN 13.6 g/dl (12.0-15.5); MEAN CORPUSCULAR HEMOGLOBIN 33.9 pg (27.0-33.0); MEAN CORPUSCULAR HGB CONC 34.1 g/dl (32.0-36.5); MEAN CORPUSCULAR VOLUME 99.5 fl (80.0-96.0); PLATELET COUNT, AUTOMATED 166 10^3/uL (150-450); RED BLOOD COUNT 4.01 10^6/uL (4.00-5.40); WHITE BLOOD COUNT 8.3 10^3/uL (4.0-10.0)
[2023-03-04 12:53] LABS: CALCIUM LEVEL 9.2 MG/DL (8.3-10.6); CREATININE FOR GFR 1.03 MG/DL (0.55-1.30); GLOMERULAR FILTRATION RATE 56.2 (>39); MAGNESIUM LEVEL 1.5 MG/DL (1.8-2.4); POTASSIUM SERUM 4.2 MMOL/L (3.5-5.1)
== END ==
LOC: M LAB 11:59
PROVIDERS: ATTEND Physician Assistant
DX: I50.32 Chronic diastolic (congestive) heart failure (principal); I48.21 Permanent atrial fibrillation

== ENCOUNTER → 2023-05-28 | Outpatient (CLI) | payer MEDICARE ==
[~2023-05-28] MED LIST changes: +MECL-209 PO; -MECL1TAB31 PO
[2023-05-28 11:40] LABS: BLOOD UREA NITROGEN 22 MG/DL (9-23); CALCIUM LEVEL 8.8 MG/DL (8.3-10.6); CARBON DIOXIDE LEVEL 30 MMOL/L (20-31); CHLORIDE LEVEL 100 MMOL/L (98-107); CREATININE FOR GFR 0.94 MG/DL (0.55-1.30); GLOMERULAR FILTRATION RATE > 60.0 (>39); GLUCOSE, FASTING 254 MG/DL (74-106); MAGNESIUM LEVEL 1.6 MG/DL (1.8-2.4); POTASSIUM SERUM 3.9 MMOL/L (3.5-5.1); SODIUM LEVEL 137 MMOL/L (136-145)
== END ==
LOC: M LAB 10:10
PROVIDERS: ATTEND Physician Assistant
DX: I50.32 Chronic diastolic (congestive) heart failure (principal); I48.21 Permanent atrial fibrillation

== ENCOUNTER 2023-06-05 09:09 | Day surgery (SDC) | payer MEDICARE ==
[~2023-06-05] VITALS: Ht 177.8 cm; Wt 61.2 kg
[~2023-06-05 09:09] MED LIST changes: +BSS IRRIG/VANCO(10MG)/TOBRA(5MG)/EPINEPH(1:1000-0.5CC)500ML BAG-ORONLY IR ONE; +CEFUROXIME 1MG/0.1ML INTRACAMERAL INJ As Ordered ONE; +CYCLOPENTOLATE 1% OPHTH SOLN 2ML BTL OS SCH; +LIDOCAINE 1% SDV 5ML VIAL As Ordered ONE; +LIDOCAINE 3.5 % 1ML OPHTH TOPICAL GEL OU ONE; +OFLOXACIN 0.3 % (OCUFLOX) OPTH SOL 5ML OS ONE; +PHENYLEPHRINE 10% OPHTH SOL 5ML OS PRN; +PHENYLEPHRINE 2.5% OPHTH SOL 2ML OS SCH; +TROPICAMIDE 1% OPHTH SOLN 15ML OS SCH
[2023-06-05] MEDS ORDERED: MIDAZOLAM INJ 2MG/2ML VIAL As Ordered ONE (10:42)
[2023-06-05] MEDS ORDERED: fentaNYL 100 MCG/2 ML INJECTION As Ordered ONE (10:42)
[2023-06-05 11:42] VITALS: BP 146/84; TEMP 97.2; O2SAT 96
== END 2023-06-05 11:56 | disposition home or self-care (01) ==
LOC: M SDC 09:09
PROVIDERS: ATTEND Ophthalmology
DX: H25.12 Age-related nuclear cataract, left eye (principal); E11.9 Type 2 diabetes mellitus without complications; I25.10 Atherosclerotic heart disease of native coronary artery without angina pectoris; I10 Essential (primary) hypertension; I48.91 Unspecified atrial fibrillation; Z86.73 Personal history of transient ischemic attack (TIA), and cerebral infarction without residual deficits; J44.9 Chronic obstructive pulmonary disease, unspecified; F17.210 Nicotine dependence, cigarettes, uncomplicated; Z88.5 Allergy status to narcotic agent; Z88.2 Allergy status to sulfonamides; Z79.899 Other long term (current) drug therapy; Z79.82 Long term (current) use of aspirin; Z79.01 Long term (current) use of anticoagulants
CPT/HCPCS: 66984; J0697; J2250; J3010; V2632

== ENCOUNTER 2023-06-19 09:46 | Day surgery (SDC) | payer MEDICARE ==
[~2023-06-19] VITALS: Ht 177.8 cm; Wt 74.5 kg
[~2023-06-19 09:46] MED LIST changes: +CYCLOPENTOLATE 1% OPHTH SOLN 2ML BTL OD SCH; -CYCLOPENTOLATE 1% OPHTH SOLN 2ML BTL OS SCH; +OFLOXACIN 0.3 % (OCUFLOX) OPTH SOL 5ML OD ONE; -OFLOXACIN 0.3 % (OCUFLOX) OPTH SOL 5ML OS ONE; +PHENYLEPHRINE 10% OPHTH SOL 5ML OD PRN; -PHENYLEPHRINE 10% OPHTH SOL 5ML OS PRN; +PHENYLEPHRINE 2.5% OPHTH SOL 2ML OD SCH; -PHENYLEPHRINE 2.5% OPHTH SOL 2ML OS SCH; +TROPICAMIDE 1% OPHTH SOLN 15ML OD SCH; -TROPICAMIDE 1% OPHTH SOLN 15ML OS SCH
[2023-06-19] MEDS ORDERED: fentaNYL 100 MCG/2 ML INJECTION As Ordered ONE (10:54)
[2023-06-19] MEDS ORDERED: MIDAZOLAM INJ 2MG/2ML VIAL As Ordered ONE (10:54)
[2023-06-19] MEDS ORDERED: LIDOCAINE 1% SDV 5ML VIAL As Ordered ONE (12:29)
[2023-06-19 12:56] VITALS: BP 181/82; TEMP 96.7; O2SAT 94
== END 2023-06-19 13:15 | disposition home or self-care (01) ==
LOC: M SDC 09:46
PROVIDERS: ATTEND Ophthalmology
DX: H25.11 Age-related nuclear cataract, right eye (principal); I25.10 Atherosclerotic heart disease of native coronary artery without angina pectoris; E11.9 Type 2 diabetes mellitus without complications; Z86.73 Personal history of transient ischemic attack (TIA), and cerebral infarction without residual deficits; I10 Essential (primary) hypertension; E78.00 Pure hypercholesterolemia, unspecified; K92.2 Gastrointestinal hemorrhage, unspecified; Z79.899 Other long term (current) drug therapy; Z79.01 Long term (current) use of anticoagulants; Z79.82 Long term (current) use of aspirin; F17.210 Nicotine dependence, cigarettes, uncomplicated; Z88.2 Allergy status to sulfonamides; Z88.5 Allergy status to narcotic agent
CPT/HCPCS: 66984; J0697; J2250; J3010; V2632

== ENCOUNTER → 2023-07-11 | Outpatient (CLI) | payer MEDICARE ==
[~2023-07-11] MED LIST changes: -BSS IRRIG/VANCO(10MG)/TOBRA(5MG)/EPINEPH(1:1000-0.5CC)500ML BAG-ORONLY IR ONE; -CEFUROXIME 1MG/0.1ML INTRACAMERAL INJ As Ordered ONE; -CYCLOPENTOLATE 1% OPHTH SOLN 2ML BTL OD SCH; -LIDOCAINE 1% SDV 5ML VIAL As Ordered ONE; -LIDOCAINE 3.5 % 1ML OPHTH TOPICAL GEL OU ONE; -OFLOXACIN 0.3 % (OCUFLOX) OPTH SOL 5ML OD ONE; -PHENYLEPHRINE 10% OPHTH SOL 5ML OD PRN; -PHENYLEPHRINE 2.5% OPHTH SOL 2ML OD SCH; -TROPICAMIDE 1% OPHTH SOLN 15ML OD SCH
== END ==
LOC: M RAD 11:28
PROVIDERS: ATTEND Physician Assistant
DX: I65.23 Occlusion and stenosis of bilateral carotid arteries (principal); Z95.5 Presence of coronary angioplasty implant and graft

== ENCOUNTER 2023-07-24 06:18 | Emergency (ER) | payer MEDICARE ==
[~2023-07-24] VITALS: Ht 177.8 cm; Wt 56.7 kg
[~2023-07-24 06:18] MED LIST changes: +IRBE150T27 PO; -IRBE150T7 PO; +IRBE75TA11; +IRBE75TA11 PO; -IRBE75TA4; -IRBE75TA4 PO
[2023-07-24 07:23] LABS: BASO % 0.5 % (0.0-1.0); EOS # 0.4 10^3/uL (0.0-0.5); EOS % 6.2 % (0.0-3.0); HEMATOCRIT 42.4 % (36.0-47.0); HEMOGLOBIN 14.8 g/dl (12.0-15.5); LYMPH # 2.3 10^3/uL (1.5-5.0); LYMPH % 38.7 % (24.0-44.0); MEAN CORPUSCULAR HEMOGLOBIN 34.3 pg (27.0-33.0); MEAN CORPUSCULAR HGB CONC 34.9 g/dl (32.0-36.5); MEAN CORPUSCULAR VOLUME 98.4 fl (80.0-96.0); MONO # 0.4 10^3/uL (0.0-0.8); MONO % 7.3 % (2.0-8.0); NEUTROPHILS # 2.8 10^3/uL (1.5-8.5); NEUTROPHILS % 47.1 % (36.0-66.0); PLATELET COUNT, AUTOMATED 153 10^3/uL (150-450); RED BLOOD COUNT 4.31 10^6/uL (4.00-5.40)
[2023-07-24 07:45] LABS: BLOOD UREA NITROGEN 13 MG/DL (9-23); CALCIUM LEVEL 8.7 MG/DL (8.3-10.6); CARBON DIOXIDE LEVEL 33 MMOL/L (20-31); CHLORIDE LEVEL 103 MMOL/L (98-107); GLOMERULAR FILTRATION RATE > 60.0 (>39); GLUCOSE, FASTING 91 MG/DL (74-106); POTASSIUM SERUM 4.3 MMOL/L (3.5-5.1); SODIUM LEVEL 140 MMOL/L (136-145)
[2023-07-24] MEDS ORDERED: IPRATROPIUM 0.5MG/ALBUTEROL 2.5MG INH SOL UD 3ML (DUONEB) NEB ONE (09:00)
[2023-07-24] MEDS ORDERED: COMBAER6 INH (09:05)
[2023-07-24 09:10] VITALS: BP 163/81; TEMP 98.4; O2SAT 90
== END 2023-07-24 09:31 | disposition home or self-care (01) ==
LOC: M ED 06:18
DX: J09.X2 Influenza due to identified novel influenza A virus with other respiratory manifestations (principal); I10 Essential (primary) hypertension; E11.9 Type 2 diabetes mellitus without complications; E78.00 Pure hypercholesterolemia, unspecified; I67.9 Cerebrovascular disease, unspecified; F17.210 Nicotine dependence, cigarettes, uncomplicated; Z88.2 Allergy status to sulfonamides; Z79.899 Other long term (current) drug therapy; Z79.810 Long term (current) use of selective estrogen receptor modulators (SERMs); Z79.51 Long term (current) use of inhaled steroids; Z79.1 Long term (current) use of non-steroidal anti-inflammatories (NSAID); Z88.5 Allergy status to narcotic agent

== ENCOUNTER → 2023-08-05 | Outpatient (CLI) | payer MEDICARE ==
[~2023-08-05] MED LIST changes: +COMBAER6 INH
== END ==
LOC: M RAD 09:21
PROVIDERS: ATTEND Nurse Practitioner Family
DX: F17.218 Nicotine dependence, cigarettes, with other nicotine-induced disorders (principal)

== ENCOUNTER → 2023-08-28 | Outpatient (CLI) | payer MEDICARE ==
[~2023-08-28] MED LIST changes: -ASPI-161 PO; +ASPI-615 PO
[2023-08-28 08:35] LABS: HEMATOCRIT 39.5 % (36.0-47.0); HEMOGLOBIN 13.4 g/dl (12.0-15.5); MEAN CORPUSCULAR HGB CONC 33.9 g/dl (32.0-36.5); MEAN CORPUSCULAR VOLUME 100.3 fl (80.0-96.0); PLATELET COUNT, AUTOMATED 182 10^3/uL (150-450); RED BLOOD COUNT 3.94 10^6/uL (4.00-5.40); WHITE BLOOD COUNT 9.8 10^3/uL (4.0-10.0)
[2023-08-28 08:55] LABS: ALBUMIN 3.3 G/DL (3.2-5.2); BILIRUBIN,TOTAL 0.5 MG/DL (0.3-1.2); CALCIUM LEVEL 9.3 MG/DL (8.3-10.6); CHOLESTEROL RISK RATIO 3.49 (<5); CREATININE FOR GFR 1.02 MG/DL (0.55-1.30); GLOMERULAR FILTRATION RATE 56.7 (>39); HDL CHOLESTEROL 25.2 MG/DL (>40); LDL CHOLESTEROL 27.8 MG/DL (<100); MAGNESIUM LEVEL 1.7 MG/DL (1.8-2.4); NON-HDL-C 62.8 MG/DL; POTASSIUM SERUM 3.8 MMOL/L (3.5-5.1); TOTAL PROTEIN 6.8 G/DL (5.7-8.2)
== END ==
LOC: M LAB 07:36 → M PLALAB 07:36
PROVIDERS: ATTEND Physician Assistant
DX: I48.21 Permanent atrial fibrillation (principal); E78.00 Pure hypercholesterolemia, unspecified

== ENCOUNTER → 2023-10-02 | Outpatient (CLI) | payer MEDICARE | LOC: M RAD 11:14 | PROVIDERS: ATTEND Nurse Practitioner Family | DX: R91.8 Other nonspecific abnormal finding of lung field (principal) ==

== ENCOUNTER → 2023-11-20 | Outpatient (CLI) | payer MEDICARE | LOC: M LAB 11:00 | PROVIDERS: ATTEND Ophthalmology | DX: H53.8 Other visual disturbances (principal) ==

== ENCOUNTER → 2023-11-20 | Outpatient (CLI) | payer MEDICARE ==
[2023-11-20 14:04] LABS: BLOOD UREA NITROGEN 22 MG/DL (9-23); CALCIUM LEVEL 9.1 MG/DL (8.3-10.6); CARBON DIOXIDE LEVEL 31 MMOL/L (20-31); CHLORIDE LEVEL 103 MMOL/L (98-107); CREATININE FOR GFR 0.93 MG/DL (0.55-1.30); GLOMERULAR FILTRATION RATE > 60.0 (>39); GLUCOSE, FASTING 110 MG/DL (74-106); MAGNESIUM LEVEL 1.7 MG/DL (1.8-2.4); POTASSIUM SERUM 4.1 MMOL/L (3.5-5.1); SODIUM LEVEL 139 MMOL/L (136-145)
== END ==
LOC: M LAB 11:14
PROVIDERS: ATTEND Physician Assistant
DX: I50.32 Chronic diastolic (congestive) heart failure (principal)

== ENCOUNTER → 2023-12-24 | Outpatient (REF) | payer MEDICARE ==
[~2023-12-24] MED LIST changes: +ONDA-282 PO; -ONDA4TAB6 PO
[2023-12-24 16:49] LABS: APPEARANCE, URINE TURBID (CLEAR); BACTERIA, URINE AUTO 2+ (NEGATIVE); BILIRUBIN, URINE AUTO NEGATIVE (NEGATIVE); BLOOD, URINE BLOOD 2+ (NEGATIVE); COLOR, URINE YELLOW (YELLOW); GLUCOSE, URINE (UA) AUTO NEGATIVE (NEGATIVE); KETONE, URINE AUTO NEGATIVE (NEGATIVE); LEUKOCYTE ESTERASE, URINE AUTO 3+ (NEGATIVE); MUCUS, URINE SMALL (NEGATIVE); NITRITE, URINE AUTO POSITIVE (NEGATIVE); PROTEIN, URINE AUTO 2+ mg/dL (NEGATIVE); RBC, URINE AUTO 36 /HPF (0-3); SPECIFIC GRAVITY URINE AUTO 1.008 (1.002-1.035); SQUAMOUS EPITHELIAL CELL UR AU 6 /HPF (0-6); UROBILINOGEN, URINE AUTO 0.2 mg/dL (0.0-2.0); WBC, URINE AUTO TNTC /HPF (0-3)
== END ==
LOC: M LABWUC 16:17
PROVIDERS: ATTEND Family Medicine
DX: N39.0 Urinary tract infection, site not specified (principal)

== ENCOUNTER → 2024-02-19 | Outpatient (CLI) | payer MEDICARE ==
[2024-02-19 16:58] LABS: CREATININE FOR GFR 1.01 MG/DL (0.55-1.30); GLOMERULAR FILTRATION RATE 57.4 (>39); POTASSIUM SERUM 4.1 MMOL/L (3.5-5.1)
== END ==
LOC: M LAB 15:28
PROVIDERS: ATTEND Ophthalmology
DX: H02.032 Senile entropion of right lower eyelid (principal)

== ENCOUNTER → 2024-03-11 | Outpatient (CLI) | payer MEDICARE ==
[2024-03-11 08:06] LABS: HEMATOCRIT 40.5 % (36.0-47.0); HEMOGLOBIN 13.6 g/dl (12.0-15.5); MEAN CORPUSCULAR HEMOGLOBIN 34.6 pg (27.0-33.0); MEAN CORPUSCULAR HGB CONC 33.6 g/dl (32.0-36.5); MEAN CORPUSCULAR VOLUME 103.1 fl (80.0-96.0); PLATELET COUNT, AUTOMATED 160 10^3/uL (150-450); RED BLOOD COUNT 3.93 10^6/uL (4.00-5.40); WHITE BLOOD COUNT 7.7 10^3/uL (4.0-10.0)
[2024-03-11 08:43] LABS: BLOOD UREA NITROGEN 16 MG/DL (9-23); CALCIUM LEVEL 9.7 MG/DL (8.3-10.6); CARBON DIOXIDE LEVEL 34 MMOL/L (20-31); CHLORIDE LEVEL 105 MMOL/L (98-107); CREATININE FOR GFR 0.93 MG/DL (0.55-1.30); GLOMERULAR FILTRATION RATE > 60.0 (>39); GLUCOSE, FASTING 103 MG/DL (74-106); MAGNESIUM LEVEL 1.7 MG/DL (1.8-2.4); POTASSIUM SERUM 4.2 MMOL/L (3.5-5.1); SODIUM LEVEL 141 MMOL/L (136-145)
== END ==
LOC: M LAB 07:33
PROVIDERS: ATTEND Physician Assistant
DX: I50.32 Chronic diastolic (congestive) heart failure (principal); I48.21 Permanent atrial fibrillation

== ENCOUNTER → 2024-04-01 | Outpatient (CLI) | payer MEDICARE | LOC: M PLAIMG 13:31 | PROVIDERS: ATTEND Physician Assistant | DX: I50.32 Chronic diastolic (congestive) heart failure (principal); I08.0 Rheumatic disorders of both mitral and aortic valves ==

== ENCOUNTER → 2024-06-09 | Outpatient (CLI) | payer MEDICARE ==
[~2024-06-09] MED LIST changes: -ROSU20TA61 PO; +ROSU20TA86 PO
== END ==
LOC: M EKG 13:11
PROVIDERS: ATTEND Physician Assistant
DX: I48.21 Permanent atrial fibrillation (principal)

== ENCOUNTER → 2024-07-13 | Outpatient (CLI) | payer MEDICARE ==
[2024-07-13 15:58] LABS: CALCIUM LEVEL 9.8 MG/DL (8.3-10.6); CREATININE FOR GFR 1.02 MG/DL (0.55-1.30); GLOMERULAR FILTRATION RATE 56.6 (>39); MAGNESIUM LEVEL 1.6 MG/DL (1.8-2.4); POTASSIUM SERUM 4.5 MMOL/L (3.5-5.1)
[2024-07-13 17:30] LABS: DIGOXIN LEVEL 3.4 NG/ML (0.8-2.0)
== END ==
LOC: M PLALAB 10:55
PROVIDERS: ATTEND Physician Assistant
DX: I50.32 Chronic diastolic (congestive) heart failure (principal)

== ENCOUNTER → 2024-07-13 | Outpatient (CLI) | payer MEDICARE | LOC: M WHC 10:54 | PROVIDERS: ATTEND Physician Assistant | DX: I65.23 Occlusion and stenosis of bilateral carotid arteries (principal) ==

== ENCOUNTER → 2024-07-21 | Outpatient (CLI) | payer MEDICARE | LOC: M LAB 11:10 | PROVIDERS: ATTEND Physician Assistant | DX: I48.21 Permanent atrial fibrillation (principal) ==

== ENCOUNTER → 2024-09-01 | Outpatient (CLI) | payer MEDICARE ==
[2024-09-01 13:19] LABS: CALCIUM LEVEL 9.4 MG/DL (8.3-10.6); CREATININE FOR GFR 1.12 MG/DL (0.55-1.30); DIGOXIN LEVEL 1.4 NG/ML (0.8-2.0); GLOMERULAR FILTRATION RATE 50.8 (>39)
== END ==
LOC: M LAB 12:00
PROVIDERS: ATTEND Physician Assistant
DX: I50.32 Chronic diastolic (congestive) heart failure (principal); I48.21 Permanent atrial fibrillation

== ENCOUNTER → 2025-02-16 | Outpatient (CLI) | payer MEDICARE | LOC: M PLAIMG 11:00 | PROVIDERS: ATTEND Physician Assistant | DX: R91.8 Other nonspecific abnormal finding of lung field (principal); J44.9 Chronic obstructive pulmonary disease, unspecified; F17.218 Nicotine dependence, cigarettes, with other nicotine-induced disorders; J84.10 Pulmonary fibrosis, unspecified ==

== ENCOUNTER → 2025-03-01 | Outpatient (CLI) | payer MEDICARE | LOC: M CARPUL 14:10 | PROVIDERS: ATTEND Physician Assistant | DX: I08.3 Combined rheumatic disorders of mitral, aortic and tricuspid valves (principal); Z95.0 Presence of cardiac pacemaker; I48.91 Unspecified atrial fibrillation ==

== ENCOUNTER → 2025-03-30 | Outpatient (CLI) | payer MEDICARE ==
[2025-03-30 11:29] LABS: CALCIUM LEVEL 9.2 MG/DL (8.3-10.6); CARBON DIOXIDE LEVEL 33.0 MMOL/L (20-31); CHLORIDE LEVEL 101.0 MMOL/L (98-107); CREATININE FOR GFR 0.97 MG/DL (0.55-1.30); DIGOXIN LEVEL 1.3 NG/ML (0.8-2.0); GLOMERULAR FILTRATION RATE 61.3 (>39); POTASSIUM SERUM 4.1 MMOL/L (3.5-5.1); SODIUM LEVEL 139.0 MMOL/L (136-145)
== END ==
LOC: M LAB 09:50
PROVIDERS: ATTEND Physician Assistant
DX: I50.32 Chronic diastolic (congestive) heart failure (principal)

== ENCOUNTER → 2025-05-28 | Outpatient (CLI) | payer MEDICARE | LOC: M EKG 13:23 | PROVIDERS: ATTEND Physician Assistant | DX: I48.21 Permanent atrial fibrillation (principal) ==

== ENCOUNTER → 2025-06-29 | Outpatient (CLI) | payer MEDICARE, OTHER ==
[2025-06-29 12:51] LABS: BASO # 0.0 10^3/uL (0.0-0.2); BASO % 0.2 % (0.0-1.0); EOS # 0.0 10^3/uL (0.0-0.5); EOS % 0.2 % (0.0-3.0); LYMPH # 1.3 10^3/uL (1.5-5.0); LYMPH % 13.1 % (24.0-44.0); MONO # 0.6 10^3/uL (0.0-0.8); MONO % 6.1 % (2.0-8.0); NEUTROPHILS # 8.2 10^3/uL (1.5-8.5); NEUTROPHILS % 79.8 % (36.0-66.0); PLATELET COUNT, AUTOMATED 150 10^3/uL (150-450)
[2025-06-29 13:22] LABS: ALT/SGPT 27.0 U/L (7.0-40); AST/SGOT 34.0 U/L (<34); CALCIUM LEVEL 7.7 MG/DL (8.3-10.6); CARBON DIOXIDE LEVEL 29.0 MMOL/L (20-31); CHLORIDE LEVEL 101.0 MMOL/L (98-107); CREATININE FOR GFR 0.93 MG/DL (0.55-1.30); GLOMERULAR FILTRATION RATE 64.5 (>39); POTASSIUM SERUM 3.7 MMOL/L (3.5-5.1); SODIUM LEVEL 138.0 MMOL/L (136-145)
[2025-06-29 13:48] LABS: INR 6.66
== END ==
LOC: M LAB 12:06
PROVIDERS: ATTEND Family Medicine
DX: Z79.01 Long term (current) use of anticoagulants (principal)

== ENCOUNTER → 2025-07-02 | Outpatient (CLI) | payer MEDICARE ==
[2025-07-02 10:30] LABS: INR 2.31
== END ==
LOC: M LAB 09:40
PROVIDERS: ATTEND Family Medicine
DX: Z51.81 Encounter for therapeutic drug level monitoring (principal); Z79.01 Long term (current) use of anticoagulants

== ENCOUNTER → 2025-07-07 | Outpatient (CLI) | payer MEDICARE ==
[2025-07-07 14:26] LABS: INR 2.98
== END ==
LOC: M WUC 11:40
PROVIDERS: ATTEND Family Medicine
DX: Z79.01 Long term (current) use of anticoagulants (principal)